=== PATIENT | female | born 1960 | race Hispanic/Latino ===

== ENCOUNTER → 2017-09-26 | Outpatient (CLI) | payer OTHER | END | disposition home or self-care (01) | LOC: RAH 10:05 | PROVIDERS: ATTEND Internal Medicine | DX: D86.0 Sarcoidosis of lung (principal) | CPT/HCPCS: 71046 ==

== ENCOUNTER → 2018-11-05 | Outpatient (CLI) | payer OTHER | END | disposition home or self-care (01) | LOC: RAH 10:47 | PROVIDERS: ATTEND Internal Medicine | DX: Z12.31 Encounter for screening mammogram for malignant neoplasm of breast (principal) | CPT/HCPCS: 77067 ==

== ENCOUNTER → 2018-11-25 | Outpatient (CLI) | payer OTHER | END | disposition home or self-care (01) | LOC: RAH 08:57 | PROVIDERS: ATTEND Internal Medicine | DX: N60.01 Solitary cyst of right breast (principal); R59.0 Localized enlarged lymph nodes | CPT/HCPCS: 76641; 77065 ==

== ENCOUNTER → 2019-11-09 | Outpatient (CLI) | payer OTHER | END | disposition home or self-care (01) | LOC: RAH 09:40 | PROVIDERS: ATTEND Internal Medicine | DX: Z12.31 Encounter for screening mammogram for malignant neoplasm of breast (principal); N64.89 Other specified disorders of breast | CPT/HCPCS: 77067 ==

== ENCOUNTER → 2019-12-04 | Outpatient (CLI) | payer OTHER | END | disposition home or self-care (01) | LOC: RAH 13:45 | PROVIDERS: ATTEND Internal Medicine | DX: R92.2 Inconclusive mammogram (principal) | CPT/HCPCS: 76641; 77065 ==

== ENCOUNTER → 2019-12-10 | Outpatient (CLI) | payer OTHER ==
--- NOTE | 2019-12-10 09:30 | NUR ---
BIOPSY RIGHT AXILLA LYMPH NODE BIOPSY DONE BY DR. FLORES. PT TOLERATED WELL. SPECIMEN SEND TO LAB . SMALL DRESSING APPLIED TO AREA POST PROCEDURE. DC INTRUCTONS GIVEN TO PT . SHE VERBALIZED UNDERSTANDING.
[2019-12-10 09:37] LABS: INR 0.9 (0.85-1.15); PARTIAL THROMBOPLASTIN TIME 34.1 SEC (26.3-35.5); PROTHROMBIN TIME 9.8 SEC (9.6-11.6)
== END | disposition home or self-care (01) ==
LOC: RAH 08:01
PROVIDERS: ATTEND Internal Medicine
DX: R59.9 Enlarged lymph nodes, unspecified (principal)
CPT/HCPCS: 36415; 38505; 76942; 85610; 85730

== ENCOUNTER → 2020-11-09 | Outpatient (CLI) | payer BC | END | disposition home or self-care (01) | LOC: RAH 08:09 | PROVIDERS: ATTEND Internal Medicine | DX: Z12.31 Encounter for screening mammogram for malignant neoplasm of breast (principal) | CPT/HCPCS: 77067 ==

== ENCOUNTER 2020-12-15 11:49 | Inpatient (IN) | payer BC ==
[~2020-12-15] VITALS: Ht 162.6 cm; Wt 69.4 kg
[2020-12-15] MEDS ORDERED: ONDANSETRON 4MG INJ IVP PRN (12:30)
[2020-12-15] MEDS ORDERED: MORPHINE 2 MG SYG IVP PRN (12:30)
[2020-12-15 12:33] LABS: BASOPHILS % (AUTO) 0.3 % (0.0-5.0); EOSINOPHILS % (AUTO) 0.2 % (0.0-8.0); HEMATOCRIT 38.5 % (36-48); LYMPHOCYTES % (AUTO) 7.1 % (21.0-51.0); MEAN CORPUSCULAR HEMOGLOBIN 29.3 pg (27.0-33.0); MEAN CORPUSCULAR HGB CONC 33.5 g/dL (32.0-36.0); MEAN CORPUSCULAR VOLUME 87.5 fL (79-99); MONOCYTES % (AUTO) 6.5 % (3.0-13.0); NEUTROPHILS % (AUTO) 85.4 % (40.0-77.0); PLATELET COUNT (AUTO) 307 K/uL (130-400); RED CELL DISTRIBUTION WIDTH 13.9 % (11.0-15.5); WHITE BLOOD COUNT (AUTO) 10.2 K/uL (4.8-10.8)
[2020-12-15 12:48] LABS: ALBUMIN 3.8 g/dL (3.5-5.0); BILIRUBIN,TOTAL 0.5 mg/dL (0.2-1.0); CREATININE 0.7 mg/dL (0.5-1.5); TOTAL PROTEIN, SERUM 8.6 g/dL (6.0-8.3)
[2020-12-15 12:54] LABS: POTASSIUM 2.7 mmol/L (3.5-5.1)
[2020-12-15] MEDS ORDERED: MAG/ALUM/SIMETH 30 ML UDCUP PO ONE (13:00)
[2020-12-15] MEDS ORDERED: DIATR MEGLU/DIATRIZOATE SODIUM 30 ML BOTTLE ONE (13:03)
[2020-12-15] MEDS: 0.9%NACL 1000ML 1,000 ML IV SCH (13:19)
[2020-12-15] MEDS ORDERED: OMEP40CA21 PO (13:23)
[2020-12-15] MEDS ORDERED: FLUT16H NASAL (13:23)
[2020-12-15] MEDS ORDERED: CETI-89 PO (13:23)
[2020-12-15] MEDS ORDERED: ROSU5TAB12 PO (13:23)
[2020-12-15 14:25] VITALS: BP 132/64
[2020-12-15] MEDS ORDERED: IOHEXOL 350 MG/ML 100ML INFUS..BTL IV ONE (16:07)
[2020-12-15] MEDS ORDERED: LACTULOSE 20 GM/30 ML UDCUP PO PRN (17:30)
[2020-12-15] MEDS ORDERED: POTASSIUM CHLORIDE 20MEQ/100ML 100 ML IV PRN (17:30)
[2020-12-15] MEDS ORDERED: DiphenhydrAMINE HCL 50 MG/ML VIAL IV PRN (17:30)
[2020-12-15] MEDS ORDERED: LIDOCAINE HCL-MPF 1% 2ML VIAL IV PRN (17:30)
[2020-12-15] MEDS ORDERED: MAG/ALUM/SIMETH 30 ML UDCUP PO PRN (17:30)
[2020-12-15] MEDS ORDERED: ACETAMINOPHEN 325 MG TAB PO PRN ×2 (17:30)
[2020-12-15] MEDS: LIDOCAINE HCL-MPF 1% 2ML VIAL IV PRN ×3 (18:30→23:59)
[2020-12-15] MEDS: POTASSIUM CHLORIDE 20MEQ/100ML 100 ML IV PRN ×3 (18:30→23:59)
[2020-12-15] MEDS: METRONIDAZOLE 500MG/100ML BAG 100 ML IV SCH (18:30)
[2020-12-15 19:36] VITALS: BP 95/62
[2020-12-15] MEDS: PHARMACY COMMUNICATION MISC SCH ×4 (20:00→22:26)
[2020-12-15] MEDS: FAMOTIDINE 20MG VIAL IV SCH (20:28)
[2020-12-15 21:39] VITALS: BP 98/52
[2020-12-15 23:39] VITALS: BP 102/61
[2020-12-16] VITALS (10 sets, daily range): BP systolic 95–114; BP diastolic 53–82
[2020-12-16] MEDS: 0.9%NACL 1000ML 1,000 ML IV SCH ×2 (00:14→02:08)
[2020-12-16] MEDS: PHARMACY COMMUNICATION MISC SCH (00:31)
[2020-12-16] MEDS ORDERED: CEFTRIAXONE 1G VIAL ONE (01:26)
[2020-12-16] MEDS: METRONIDAZOLE 500MG/100ML BAG 100 ML IV SCH ×3 (02:35→18:07)
[2020-12-16] MEDS: LIDOCAINE HCL-MPF 1% 2ML VIAL IV PRN (05:08)
[2020-12-16] MEDS: POTASSIUM CHLORIDE 20MEQ/100ML 100 ML IV PRN (05:08)
[2020-12-16 06:56] LABS: MEAN CORPUSCULAR HEMOGLOBIN 29.5 pg (27.0-33.0); MEAN CORPUSCULAR VOLUME 86.6 fL (79-99); RED BLOOD CELL COUNT(AUTO) 4.04 MIL/uL (4.00-5.50); WHITE BLOOD COUNT (AUTO) 8.4 K/uL (4.8-10.8)
[2020-12-16 07:05] LABS: CREATININE 0.6 mg/dL (0.5-1.5); POTASSIUM 3.6 mmol/L (3.5-5.1)
[2020-12-16] MEDS: ENOXAPARIN SODIUM 40 MG/0.4 ML SYRINGE SQ SCH (09:06)
[2020-12-16] MEDS: FAMOTIDINE 20MG VIAL IV SCH ×2 (09:06→20:21)
[2020-12-16] MEDS: CEFTRIAXONE 1G VIAL IV SCH (20:21)
[2020-12-17] MEDS: METRONIDAZOLE 500MG/100ML BAG 100 ML IV SCH ×3 (00:44→19:17)
[2020-12-17] MEDS: 0.9%NACL 1000ML 1,000 ML IV SCH ×4 (00:44→22:52)
[2020-12-17 04:13] VITALS: BP 117/62
[2020-12-17 05:54] LABS: HEMATOCRIT 33.9 % (36-48); MEAN CORPUSCULAR HEMOGLOBIN 29.3 pg (27.0-33.0); MEAN CORPUSCULAR HGB CONC 33.6 g/dL (32.0-36.0); MEAN CORPUSCULAR VOLUME 87.1 fL (79-99); RED BLOOD CELL COUNT(AUTO) 3.89 MIL/uL (4.00-5.50); RED CELL DISTRIBUTION WIDTH 14.6 % (11.0-15.5); WHITE BLOOD COUNT (AUTO) 5.8 K/uL (4.8-10.8)
[2020-12-17 06:25] LABS: CREATININE 0.4 mg/dL (0.5-1.5); POTASSIUM 3.4 mmol/L (3.5-5.1)
[2020-12-17 08:00] VITALS: BP 107/68
[2020-12-17] MEDS: ENOXAPARIN SODIUM 40 MG/0.4 ML SYRINGE SQ SCH (09:38)
[2020-12-17] MEDS: FAMOTIDINE 20MG VIAL IV SCH ×2 (09:38→22:23)
[2020-12-17 11:48] VITALS: BP 107/64
[2020-12-17] MEDS ORDERED: GLYCERIN ADULT SUPP.RECT RC ONE (14:40)
[2020-12-17] MEDS ORDERED: BISACODYL 10 MG SUPP.RECT RC ONE (15:49)
[2020-12-17 16:00] VITALS: BP 95/66
[2020-12-17] MEDS ORDERED: POTASSIUM CHLORIDE 20 MEQ/100 ML BAG IV SCH (19:30)
[2020-12-17] MEDS: LIDOCAINE HCL-MPF 1% 2ML VIAL IV PRN (19:34)
[2020-12-17 19:35] VITALS: BP 100/62
[2020-12-17] MEDS: POTASSIUM CHLORIDE 20MEQ/100ML 100 ML IV PRN (19:35)
[2020-12-17] MEDS: CEFTRIAXONE 1G VIAL IV SCH (22:23)
[2020-12-18] VITALS (21 sets, daily range): BP systolic 94–133; BP diastolic 36–92
[2020-12-18] MEDS: METRONIDAZOLE 500MG/100ML BAG 100 ML IV SCH ×3 (01:34→16:23)
[2020-12-18 05:48] LABS: HEMATOCRIT 33.4 % (36-48); MEAN CORPUSCULAR HEMOGLOBIN 29.1 pg (27.0-33.0); MEAN CORPUSCULAR HGB CONC 32.9 g/dL (32.0-36.0); MEAN CORPUSCULAR VOLUME 88.4 fL (79-99); RED BLOOD CELL COUNT(AUTO) 3.78 MIL/uL (4.00-5.50); RED CELL DISTRIBUTION WIDTH 14.9 % (11.0-15.5); WHITE BLOOD COUNT (AUTO) 5.4 K/uL (4.8-10.8)
[2020-12-18 05:58] LABS: CREATININE 0.4 mg/dL (0.5-1.5)
[2020-12-18] MEDS: LIDOCAINE HCL-MPF 1% 2ML VIAL IV PRN ×2 (06:19→08:37)
[2020-12-18] MEDS: POTASSIUM CHLORIDE 20MEQ/100ML 100 ML IV PRN ×3 (06:19→19:55)
[2020-12-18] MEDS: ENOXAPARIN SODIUM 40 MG/0.4 ML SYRINGE SQ SCH (08:33)
[2020-12-18] MEDS: 0.9%NACL 1000ML 1,000 ML IV SCH (08:37)
[2020-12-18] MEDS: FAMOTIDINE 20MG VIAL IV SCH ×2 (08:37→19:52)
[2020-12-18] MEDS ORDERED: SIMETHICONE 40 MG/0.6 ML ML ONE (10:24)
[2020-12-18] MEDS ORDERED: PROPOFOL 10 MG/ML 20ML VIAL IV ONE (10:27)
[2020-12-18] MEDS ORDERED: MIDAZOLAM HCL 1 MG/ML 2ML VIAL ONE (10:27)
[2020-12-18] MEDS ORDERED: LIDOCAINE PF 100MG/5ML (2%) SYRINGE 5ML ONE (10:29)
[2020-12-18] MEDS ORDERED: PHARMACY COMMUNICATION MISC SCH (11:30)
[2020-12-18] MEDS: D5W-1/2 NS/20MEQ KCL 1,000 ML IV SCH ×2 (14:16→19:30)
[2020-12-18] MEDS: CEFTRIAXONE 1G VIAL IV SCH (19:52)
[2020-12-19] MEDS: METRONIDAZOLE 500MG/100ML BAG 100 ML IV SCH ×3 (00:58→18:01)
[2020-12-19] MEDS: D5W-1/2 NS/20MEQ KCL 1,000 ML IV SCH (01:00)
[2020-12-19] MEDS: LIDOCAINE HCL-MPF 1% 2ML VIAL IV PRN ×2 (01:08→06:00)
[2020-12-19 04:14] VITALS: BP 111/63
[2020-12-19 05:40] LABS: CREATININE 0.5 mg/dL (0.5-1.5); POTASSIUM 3.1 mmol/L (3.5-5.1)
[2020-12-19 07:30] VITALS: BP 117/66
[2020-12-19] MEDS: FAMOTIDINE 20MG VIAL IV SCH ×2 (09:48→21:47)
[2020-12-19] MEDS: ENOXAPARIN SODIUM 40 MG/0.4 ML SYRINGE SQ SCH (09:49)
[2020-12-19 11:00] VITALS: BP 117/67
[2020-12-19] MEDS ORDERED: GLYCERIN ADULT SUPP.RECT RC SCH (11:00)
[2020-12-19] MEDS ORDERED: BISACODYL 10 MG SUPP.RECT RC PRN (11:00)
[2020-12-19 11:50] LABS: POTASSIUM 3.2 mmol/L (3.5-5.1)
[2020-12-19 16:00] VITALS: BP 122/60
[2020-12-19] MEDS: DEXTROSE 5%-WATER 1,000 ML IV SCH (18:01)
[2020-12-19 20:10] VITALS: BP 116/60
[2020-12-19] MEDS: CEFTRIAXONE 1G VIAL IV SCH (21:47)
[2020-12-19 23:45] VITALS: BP 119/74
[2020-12-20] MEDS: DEXTROSE 5%-WATER 1,000 ML IV SCH ×3 (02:02→18:08)
[2020-12-20] MEDS: METRONIDAZOLE 500MG/100ML BAG 100 ML IV SCH ×3 (02:02→18:08)
[2020-12-20 04:04] VITALS: BP 115/68
[2020-12-20 05:35] LABS: CREATININE 0.5 mg/dL (0.5-1.5); POTASSIUM 3.7 mmol/L (3.5-5.1)
[2020-12-20 07:30] VITALS: BP 109/68
[2020-12-20] MEDS ORDERED: DEXMEDETOMIDINE HCL 400 MCG in 0.9%NACL 100ML 100 ML IV SCH (08:00)
[2020-12-20] MEDS ORDERED: M.V.I. IV [ADULT] 10 ML, MULTITRACE-4 ADULT 10ML VIAL 3 ML in CLINIMIX-E4.25%AA/D5+LYT2... IV NR (09:00)
[2020-12-20 11:00] VITALS: BP 96/62
[2020-12-20] MEDS: ENOXAPARIN SODIUM 40 MG/0.4 ML SYRINGE SQ SCH (11:09)
[2020-12-20] MEDS: FAMOTIDINE 20MG VIAL IV SCH ×2 (11:09→20:42)
[2020-12-20 16:00] VITALS: BP 103/59
[2020-12-20 20:09] VITALS: BP 96/59
[2020-12-20] MEDS: CEFTRIAXONE 1G VIAL IV SCH (20:42)
[2020-12-20] MEDS: M.V.I. IV [ADULT] 10 ML in CLINIMIX-E4.25%AA/D5+LYT2000ML 2,000 ML IV NR (20:50)
[2020-12-20] MEDS: ONDANSETRON 4MG INJ IV PRN (23:09)
[2020-12-20 23:45] VITALS: BP 100/56
[2020-12-21] MEDS: DEXTROSE 5%-WATER 1,000 ML IV SCH ×3 (00:29→17:00)
[2020-12-21] MEDS: METRONIDAZOLE 500MG/100ML BAG 100 ML IV SCH ×2 (01:08→22:47)
[2020-12-21 04:07] VITALS: BP 109/66
[2020-12-21 04:56] LABS: HEMATOCRIT 36.2 % (36-48); MEAN CORPUSCULAR HEMOGLOBIN 29.4 pg (27.0-33.0); MEAN CORPUSCULAR VOLUME 91.6 fL (79-99); RED BLOOD CELL COUNT(AUTO) 3.95 MIL/uL (4.00-5.50); RED CELL DISTRIBUTION WIDTH 15.8 % (11.0-15.5); WHITE BLOOD COUNT (AUTO) 6.7 K/uL (4.8-10.8)
[2020-12-21 05:11] LABS: CREATININE 0.6 mg/dL (0.5-1.5); POTASSIUM 4.6 mmol/L (3.5-5.1)
[2020-12-21 07:30] VITALS: BP 107/64
[2020-12-21] MEDS: FAT EMULSIONS 20% 250ML 250 ML IV SCH ×2 (09:42→10:00)
[2020-12-21] MEDS: PANTOPRAZOLE 40 MG/VIAL IVP SCH (09:50)
[2020-12-21 11:00] VITALS: BP 111/72
[2020-12-21] MEDS: M.V.I. IV [ADULT] 10 ML in CLINIMIX-E4.25%AA/D5+LYT2000ML 2,000 ML IV NR ×2 (13:50→22:48)
[2020-12-21 16:00] VITALS: BP 103/67
[2020-12-21 20:24] VITALS: BP_SYST 139; BP_SYST 99; BP_DIAS 50; BP_DIAS 61
[2020-12-21] MEDS: CEFTRIAXONE 1G VIAL IV SCH (22:33)
[2020-12-21 23:57] VITALS: BP 105/59
[2020-12-22] VITALS (18 sets, daily range): BP systolic 86–162; BP diastolic 53–93
[2020-12-22] MEDS: DEXTROSE 5%-WATER 1,000 ML IV SCH ×2 (01:00→08:20)
[2020-12-22 05:36] LABS: BASOPHILS % (AUTO) 0.5 % (0.0-5.0); EOSINOPHILS % (AUTO) 2.8 % (0.0-8.0); HEMATOCRIT 35.2 % (36-48); LYMPHOCYTES % (AUTO) 13.4 % (21.0-51.0); MEAN CORPUSCULAR HEMOGLOBIN 29.3 pg (27.0-33.0); MEAN CORPUSCULAR HGB CONC 32.7 g/dL (32.0-36.0); MEAN CORPUSCULAR VOLUME 89.8 fL (79-99); MONOCYTES % (AUTO) 9.8 % (3.0-13.0); NEUTROPHILS % (AUTO) 72.7 % (40.0-77.0); PLATELET COUNT (AUTO) 329 K/uL (130-400); RED BLOOD CELL COUNT(AUTO) 3.92 MIL/uL (4.00-5.50); RED CELL DISTRIBUTION WIDTH 15.6 % (11.0-15.5); WHITE BLOOD COUNT (AUTO) 6.1 K/uL (4.8-10.8)
[2020-12-22 05:44] LABS: INR 1.05 (0.85-1.15); PROTHROMBIN TIME 11.4 SEC (9.6-11.6)
[2020-12-22 05:45] LABS: PARTIAL THROMBOPLASTIN TIME 29.8 SEC (26.3-35.5)
[2020-12-22 05:52] LABS: ALBUMIN 2.7 g/dL (3.5-5.0); BILIRUBIN,TOTAL 0.3 mg/dL (0.2-1.0); CREATININE 0.5 mg/dL (0.5-1.5); POTASSIUM 4.6 mmol/L (3.5-5.1)
[2020-12-22] MEDS: PANTOPRAZOLE 40 MG/VIAL IVP SCH (08:01)
[2020-12-22] MEDS: ENOXAPARIN SODIUM 30 MG/0.3 ML SQ SCH (08:01)
[2020-12-22] MEDS: METRONIDAZOLE 500MG/100ML BAG 100 ML IV SCH ×4 (08:01→20:48)
[2020-12-22] MEDS ORDERED: LACTATED RINGERS 1000ML 1,000 ML IV ONE (08:22)
[2020-12-22] MEDS ORDERED: FENTANYL CITRATE PF 50 MCG/1 ML 2ML VIAL ONE (08:47)
[2020-12-22] MEDS ORDERED: SUCCINYLCHOLINE CHLORIDE 20 MG/ML 10 ML VIAL ONE (08:47)
[2020-12-22] MEDS ORDERED: ROCURONIUM 10MG/1ML SYR 10 MG/ML ML ONE ×4 (08:47→12:50)
[2020-12-22] MEDS ORDERED: LIDOCAINE PF 100MG/5ML (2%) SYRINGE 5ML ONE (08:47)
[2020-12-22] MEDS ORDERED: MIDAZOLAM HCL 1 MG/ML 2ML VIAL ONE ×2 (08:47→13:01)
[2020-12-22] MEDS ORDERED: PROPOFOL 10 MG/ML 20ML VIAL IV ONE (08:48)
[2020-12-22] MEDS ORDERED: ROPIVACAINE 0.5% 5MG/ML 30ML IJ ONE (08:52)
[2020-12-22] MEDS ORDERED: PHENYLEPHRINE HCL 10 MG/ML 1ML VIAL IV ONE (09:58)
[2020-12-22] MEDS ORDERED: CLINDAMYCIN 900MG/6ML INJ ONE ×2 (10:00→11:19)
[2020-12-22] MEDS ORDERED: ALBUMIN (HUMAN) 5% 250 ML IV ONE ×4 (11:27→14:50)
[2020-12-22] MEDS ORDERED: VASOPRESSIN 20 UNITS/ML 1ML VIAL ONE (11:38)
[2020-12-22 11:39] LABS: ABG BASE EXCESS -1.3 mmol/L (-2.0-3.0); ABG HCO3 22.3 mmol/L (21.0-28.0); ABG OXYGEN SATURATION 98.1 % (95.0-99.0); ABG PCO2 34 mmHg (32-45)
[2020-12-22] MEDS ORDERED: EPINEPHRINE 1 MG/ML 30ML VIAL IJ ONE (11:43)
[2020-12-22 11:44] LABS: ABG BASE EXCESS -2.6 mmol/L (-2.0-3.0); ABG HCO3 21.1 mmol/L (21.0-28.0); ABG OXYGEN SATURATION 98.9 % (95.0-99.0); ABG PCO2 33 mmHg (32-45)
[2020-12-22] MEDS ORDERED: NOREPINEPHRINE BITARTRATE 1 MG/1 ML ML IV ONE (11:53)
[2020-12-22] MEDS ORDERED: SODIUM BICARB 8.4% 50ML SYRINGE ONE (11:59)
[2020-12-22] MEDS ORDERED: ALBUMIN (HUMAN) 5% 500 ML IV ONE (12:12)
[2020-12-22] MEDS ORDERED: GENTAMICIN SULFATE 80 MG/2 ML VIAL ONE (12:20)
[2020-12-22] MEDS ORDERED: ALBUMIN (HUMAN) 25% 100 ML IV ONE (12:21)
[2020-12-22] MEDS ORDERED: SODIUM BICARB 50MEQ 50ML VIAL 250 ML ONE (12:26)
[2020-12-22 12:54] LABS: ABG BASE EXCESS 3.5 mmol/L (-2.0-3.0); ABG HCO3 28.2 mmol/L (21.0-28.0); ABG PCO2 43 mmHg (32-45)
[2020-12-22] MEDS: LACTATED RINGERS 1000ML 1,000 ML IV SCH ×2 (13:50→16:33)
[2020-12-22 15:19] LABS: HEMATOCRIT 37.7 % (36-48); MEAN CORPUSCULAR HEMOGLOBIN 28.8 pg (27.0-33.0); MEAN CORPUSCULAR HGB CONC 33.4 g/dL (32.0-36.0); MEAN CORPUSCULAR VOLUME 86.1 fL (79-99); PLATELET COUNT (AUTO) 244 K/uL (130-400); RED BLOOD CELL COUNT(AUTO) 4.38 MIL/uL (4.00-5.50); RED CELL DISTRIBUTION WIDTH 15.3 % (11.0-15.5); WHITE BLOOD COUNT (AUTO) 4.4 K/uL (4.8-10.8)
[2020-12-22 15:47] LABS: CREATININE 0.4 mg/dL (0.5-1.5); POTASSIUM 3.6 mmol/L (3.5-5.1)
[2020-12-22 15:55] LABS: BAND NEUTROPHILS % (MANUAL) 5 % (0-2); LYMPHOCYTES % (MANUAL) 16 % (22-44); MAN.DIFF COMMENT-IMPRESSION MANUAL DIFFERENTIAL; MONOCYTES % (MANUAL) 8 % (2-9); PLATELET MORPHOLOGY COMMENT ADEQUATE; REACTIVE LYMPHOCYTES 3 % (0-0); SEGMENTED NEUTROPHILS % 68 % (40-70)
[2020-12-22 15:59] LABS: ALBUMIN 3.8 g/dL (3.5-5.0); BILIRUBIN,TOTAL 2.1 mg/dL (0.2-1.0); TOTAL PROTEIN, SERUM 5.2 g/dL (6.0-8.3)
[2020-12-22] MEDS: FENTANYL 2500MCG+NS 250ML 250 ML IV SCH (16:00)
[2020-12-22] MEDS: CEFTRIAXONE 1G VIAL IV SCH (20:48)
[2020-12-22] MEDS ORDERED: NOREPINEPHRIN 8MG/250ML NS PMX 250 ML IV ONE (23:23)
[2020-12-23] VITALS (73 sets, daily range): BP systolic 69–144; BP diastolic 46–74
[2020-12-23] MEDS: PROPOFOL 1000 MG/100 ML IV PRN ×3 (01:17→09:00)
[2020-12-23 02:19] LABS: BASOPHILS % (AUTO) 0.6 % (0.0-5.0); EOSINOPHILS % (AUTO) 0.1 % (0.0-8.0); HEMATOCRIT 38.3 % (36-48); LYMPHOCYTES % (AUTO) 6.5 % (21.0-51.0); MEAN CORPUSCULAR HEMOGLOBIN 29.6 pg (27.0-33.0); MEAN CORPUSCULAR HGB CONC 34.7 g/dL (32.0-36.0); MEAN CORPUSCULAR VOLUME 85.3 fL (79-99); MONOCYTES % (AUTO) 4.6 % (3.0-13.0); NEUTROPHILS % (AUTO) 87.7 % (40.0-77.0); PLATELET COUNT (AUTO) 250 K/uL (130-400); RED BLOOD CELL COUNT(AUTO) 4.49 MIL/uL (4.00-5.50); RED CELL DISTRIBUTION WIDTH 15.7 % (11.0-15.5)
[2020-12-23 02:36] LABS: CREATININE 0.5 mg/dL (0.5-1.5); MAGNESIUM 1.4 mg/dL (1.80-2.40); PHOSPHORUS 4.8 mg/dL (2.5-4.9); POTASSIUM 3.7 mmol/L (3.5-5.1)
[2020-12-23] MEDS: LACTATED RINGERS 1000ML 1,000 ML IV SCH ×4 (03:00→22:28)
[2020-12-23] MEDS ORDERED: NOREPINEPHRIN 8MG/250ML NS PMX 250 ML IV ONE ×2 (04:42→17:21)
[2020-12-23] MEDS: MAGNESIUM 2GM PREMIX 50ML 50 ML IV PRN (07:13)
[2020-12-23] MEDS: POTASSIUM CHLORIDE 20MEQ/100ML 100 ML IV PRN ×2 (07:14→21:10)
[2020-12-23] MEDS: METRONIDAZOLE 500MG/100ML BAG 100 ML IV SCH ×2 (08:52→20:52)
[2020-12-23] MEDS: PANTOPRAZOLE 40 MG/VIAL IVP SCH (08:52)
[2020-12-23] MEDS: ENOXAPARIN SODIUM 30 MG/0.3 ML SQ SCH (08:52)
[2020-12-23] MEDS: FENTANYL 2500MCG+NS 250ML 250 ML IV SCH (09:01)
[2020-12-23] MEDS: FLUCONAZOLE 400 MG/NS 200 ML 200 ML IV SCH (10:57)
[2020-12-23] MEDS: LACTATED RINGERS 1000ML IV SCH ×2 (10:57→10:58)
[2020-12-23] MEDS ORDERED: PHARMACY COMMUNICATION MISC SCH (11:30)
[2020-12-23] MEDS: MIDAZOLAM 100MG-0.9% NS 100ML 100ML BAG IV SCH (17:38)
[2020-12-23 20:27] LABS: MAGNESIUM 2.2 mg/dL (1.80-2.40); POTASSIUM 3.6 mmol/L (3.5-5.1)
[2020-12-23] MEDS: CEFTRIAXONE 2GM VIAL IVP SCH (20:51)
[2020-12-24] VITALS (61 sets, daily range): BP systolic 75–125; BP diastolic 41–102
[2020-12-24] MEDS ORDERED: NOREPINEPHRIN 8MG/250ML NS PMX 250 ML IV ONE (00:57)
[2020-12-24] MEDS: FENTANYL 2500MCG+NS 250ML 250 ML IV SCH ×3 (01:50→19:41)
[2020-12-24] MEDS: NOREPINEPHRINE BITARTRATE 8 MG in DEXTROSE 5%-WATER 250 ML IV PRN (01:51)
[2020-12-24] MEDS: MIDAZOLAM 100MG-0.9% NS 100ML 100ML BAG IV SCH ×3 (03:48→19:39)
[2020-12-24 03:53] LABS: HEMATOCRIT 30.1 % (36-48); MEAN CORPUSCULAR HEMOGLOBIN 29.9 pg (27.0-33.0); MEAN CORPUSCULAR HGB CONC 33.6 g/dL (32.0-36.0); MEAN CORPUSCULAR VOLUME 89.1 fL (79-99); NUCLEATED RED BLOOD CELLS 0.1 % (0.0-0.19); RED BLOOD CELL COUNT(AUTO) 3.38 MIL/uL (4.00-5.50); RED CELL DISTRIBUTION WIDTH 16.6 % (11.0-15.5); WHITE BLOOD COUNT (AUTO) 17.2 K/uL (4.8-10.8)
[2020-12-24] MEDS: LACTATED RINGERS 1000ML 1,000 ML IV SCH (05:38)
[2020-12-24] MEDS ORDERED: DEXTROSE 50%-WATER 50 ML DISP.SYRIN IV ONE (05:45)
[2020-12-24] MEDS: DEXTROSE 50%-WATER 50 ML DISP.SYRIN IV SCH (05:48)
[2020-12-24 06:14] LABS: ALBUMIN 1.8 g/dL (3.5-5.0); BILIRUBIN,DIRECT 0.5 mg/dL (0.0-0.3); BILIRUBIN,TOTAL 0.7 mg/dL (0.2-1.0); CREATININE 0.8 mg/dL (0.5-1.5); PHOSPHORUS 2.2 mg/dL (2.5-4.9); POTASSIUM 3.5 mmol/L (3.5-5.1); TOTAL PROTEIN, SERUM 4.1 g/dL (6.0-8.3)
[2020-12-24] MEDS ORDERED: VANCOMYCIN PROTOCOL PER PHARMACY IV SCH (08:00)
[2020-12-24 08:14] LABS: CREATININE 0.7 mg/dL (0.5-1.5); POTASSIUM 3.1 mmol/L (3.5-5.1)
[2020-12-24] MEDS: DEXTROSE 5% IV SCH ×2 (09:00→21:41)
[2020-12-24] MEDS: PANTOPRAZOLE 40 MG/VIAL IVP SCH (09:00)
[2020-12-24] MEDS: WATER IV SCH ×2 (09:00→21:41)
[2020-12-24] MEDS ORDERED: VANCOMYCIN 1G/250ML KIT 250 ML IV SCH (09:00)
[2020-12-24] MEDS: FLUCONAZOLE 400 MG/NS 200 ML 200 ML IV SCH (09:00)
[2020-12-24] MEDS: ENOXAPARIN SODIUM 30 MG/0.3 ML SQ SCH (09:00)
[2020-12-24] MEDS: METRONIDAZOLE 500MG/100ML BAG 100 ML IV SCH ×2 (09:00→21:40)
[2020-12-24] MEDS: VANCOMYCIN IV SCH ×2 (09:00→21:41)
[2020-12-24] MEDS ORDERED: PHARMACY COMMUNICATION MISC SCH (09:00)
[2020-12-24] MEDS ORDERED: DEXTROSE 5%-WATER 1,000 ML IV ONE ×2 (09:28→13:02)
[2020-12-24 11:40] LABS: CREATININE 0.6 mg/dL (0.5-1.5)
[2020-12-24 11:45] LABS: POTASSIUM 2.9 mmol/L (3.5-5.1)
[2020-12-24] MEDS ORDERED: ROCURONIUM 10MG/1ML SYR 10 MG/ML ML ONE (12:51)
[2020-12-24] MEDS ORDERED: EPHEDRINE SULFATE 50 MG/ML AMPULE ONE (12:51)
[2020-12-24] MEDS ORDERED: CLINDAMYCIN 900MG/6ML INJ ONE (13:03)
[2020-12-24] MEDS ORDERED: VASOPRESSIN 20 UNITS/ML 1ML VIAL ONE (13:04)
[2020-12-24] MEDS ORDERED: FENTANYL CITRATE PF 50 MCG/1 ML 2ML VIAL ONE (13:20)
[2020-12-24 13:24] LABS: ABG BASE EXCESS 1.1 mmol/L (-2.0-3.0); ABG HCO3 25.5 mmol/L (21.0-28.0); ABG OXYGEN SATURATION 98.6 % (95.0-99.0); ABG PCO2 40 mmHg (32-45)
[2020-12-24 15:14] LABS: HEMATOCRIT 31.1 % (36-48); MEAN CORPUSCULAR HEMOGLOBIN 29.8 pg (27.0-33.0); MEAN CORPUSCULAR HGB CONC 31.5 g/dL (32.0-36.0); MEAN CORPUSCULAR VOLUME 94.5 fL (79-99); NUCLEATED RED BLOOD CELLS 0.2 % (0.0-0.19); PLATELET COUNT (AUTO) 217 K/uL (130-400); RED BLOOD CELL COUNT(AUTO) 3.29 MIL/uL (4.00-5.50); RED CELL DISTRIBUTION WIDTH 17.2 % (11.0-15.5); WHITE BLOOD COUNT (AUTO) 16.8 K/uL (4.8-10.8)
[2020-12-24 15:22] LABS: CREATININE 0.7 mg/dL (0.5-1.5); POTASSIUM 3.2 mmol/L (3.5-5.1)
[2020-12-24 16:16] LABS: BAND NEUTROPHILS % (MANUAL) 3 % (0-2); LYMPHOCYTES % (MANUAL) 7 % (22-44); MAN.DIFF COMMENT-IMPRESSION MANUAL DIFFERENTIAL; MONOCYTES % (MANUAL) 3 % (2-9); SEGMENTED NEUTROPHILS % 87 % (40-70)
[2020-12-24 16:17] LABS: PLATELET MORPHOLOGY COMMENT ADEQUATE
[2020-12-24 17:48] LABS: APPEARANCE,URINE Clear (CLEAR); BILIRUBIN,URINE Negative (NEGATIVE); COLOR,URINE Yellow (YELLOW); GLUCOSE, URINE (UA) Negative (NEGATIVE); KETONES,URINE Negative (NEGATIVE); LEUKOCYTE ESTERASE ,URINE Trace (NEGATIVE); NITRATE,URINE Negative (NEGATIVE); OCCULT BLOOD,URINE Trace (NEGATIVE); PROTEIN,URINE Negative (NEGATIVE); UROBILINOGEN,URINE 0.2 mg/dL (0.2-1.0)
[2020-12-24 18:10] LABS: BACTERIA,URINE Rare /HPF (None Seen); MUCUS,URINE Rare LPF (None Seen); SQUAMOUS EPITHELIAL CELL,UR 0-2 /HPF (0-2)
[2020-12-24 19:22] LABS: CREATININE 0.7 mg/dL (0.5-1.5); POTASSIUM 3.5 mmol/L (3.5-5.1)
[2020-12-24 19:25] LABS: CHLORIDE,URINE RANDOM 54 mmol/L (110-250); CREATININE,URINE RANDOM 2 mg/dL (30-135); POTASSIUM,URINE RANDOM 12 mmol/L (25-125); SODIUM,URINE RANDOM 48 mmol/l (40-220)
[2020-12-24] MEDS ORDERED: DEXTROSE 5 % AND 0.9 % NACL 1,000 ML IV ONE (20:54)
[2020-12-24] MEDS ORDERED: VANCOMYCIN 1G/250ML KIT 250 ML IV ONE (21:36)
[2020-12-24] MEDS: CEFTRIAXONE 2GM VIAL IVP SCH (21:41)
[2020-12-24 23:47] LABS: CREATININE 0.7 mg/dL (0.5-1.5); POTASSIUM 3.1 mmol/L (3.5-5.1)
[2020-12-25] VITALS (51 sets, daily range): BP systolic 78–133; BP diastolic 38–78
[2020-12-25] MEDS ORDERED: DEXTROSE 5 % AND 0.9 % NACL 1,000 ML IV ONE (02:40)
[2020-12-25] MEDS ORDERED: NOREPINEPHRIN 8MG/250ML NS PMX 250 ML IV ONE (03:03)
[2020-12-25 03:52] LABS: HEMATOCRIT 36.1 % (36-48); MEAN CORPUSCULAR HEMOGLOBIN 29.4 pg (27.0-33.0); MEAN CORPUSCULAR HGB CONC 29.9 g/dL (32.0-36.0); MEAN CORPUSCULAR VOLUME 98.4 fL (79-99); NUCLEATED RED BLOOD CELLS 0.4 % (0.0-0.19); RED BLOOD CELL COUNT(AUTO) 3.67 MIL/uL (4.00-5.50); RED CELL DISTRIBUTION WIDTH 17.7 % (11.0-15.5)
[2020-12-25 04:10] LABS: CREATININE 0.7 mg/dL (0.5-1.5); MAGNESIUM 1.9 mg/dL (1.80-2.40); PHOSPHORUS 1.5 mg/dL (2.5-4.9)
[2020-12-25 04:33] LABS: POTASSIUM 2.8 mmol/L (3.5-5.1)
[2020-12-25] MEDS: DEXTROSE 50%-WATER 50 ML DISP.SYRIN IV SCH ×2 (05:09→21:24)
[2020-12-25] MEDS: POTASSIUM CHLORIDE 20MEQ/100ML 100 ML IV PRN ×4 (05:14→22:36)
[2020-12-25] MEDS: MAGNESIUM 2GM PREMIX 50ML 50 ML IV PRN (05:14)
[2020-12-25 08:17] LABS: CREATININE 0.8 mg/dL (0.5-1.5); POTASSIUM 3.4 mmol/L (3.5-5.1)
[2020-12-25] MEDS: PANTOPRAZOLE 40 MG/VIAL IVP SCH (09:18)
[2020-12-25] MEDS: METRONIDAZOLE 500MG/100ML BAG 100 ML IV SCH ×2 (09:18→21:11)
[2020-12-25] MEDS: FLUCONAZOLE 400 MG/NS 200 ML 200 ML IV SCH (09:18)
[2020-12-25] MEDS: DEXTROSE 5%-WATER 1,000 ML IV SCH ×4 (09:19→21:25)
[2020-12-25] MEDS: ENOXAPARIN SODIUM 30 MG/0.3 ML SQ SCH (09:19)
[2020-12-25] MEDS: DEXTROSE 5% IV SCH ×2 (09:24→21:07)
[2020-12-25] MEDS: WATER IV SCH ×2 (09:24→21:07)
[2020-12-25] MEDS: VANCOMYCIN IV SCH ×2 (09:24→21:07)
[2020-12-25] MEDS: FENTANYL 2500MCG+NS 250ML 250 ML IV SCH ×2 (10:21→19:44)
[2020-12-25] MEDS: MIDAZOLAM 100MG-0.9% NS 100ML 100ML BAG IV SCH ×2 (10:22→21:49)
[2020-12-25] MEDS ORDERED: PHARMACY COMMUNICATION MISC SCH (11:00)
[2020-12-25 11:20] LABS: CREATININE 0.8 mg/dL (0.5-1.5); POTASSIUM 3.2 mmol/L (3.5-5.1)
[2020-12-25 17:04] LABS: CREATININE 0.8 mg/dL (0.5-1.5); POTASSIUM 3.2 mmol/L (3.5-5.1)
[2020-12-25] MEDS: NOREPINEPHRINE BITARTRATE 8 MG in DEXTROSE 5%-WATER 250 ML IV PRN (19:46)
[2020-12-25 19:53] LABS: CREATININE 0.8 mg/dL (0.5-1.5); POTASSIUM 3.2 mmol/L (3.5-5.1)
[2020-12-25] MEDS ORDERED: VANCOMYCIN 1G/250ML KIT 250 ML IV ONE (20:50)
[2020-12-25] MEDS: CEFTRIAXONE 2GM VIAL IVP SCH (21:16)
[2020-12-25 23:53] LABS: CREATININE 0.8 mg/dL (0.5-1.5)
[2020-12-26] VITALS (56 sets, daily range): BP systolic 74–179; BP diastolic 39–108
[2020-12-26 00:08] LABS: POTASSIUM 3.7 mmol/L (3.5-5.1)
[2020-12-26] MEDS: DEXTROSE 5%-WATER 1,000 ML IV SCH ×4 (00:35→14:28)
[2020-12-26 02:37] LABS: HEMATOCRIT 33.2 % (36-48); MEAN CORPUSCULAR HEMOGLOBIN 29.3 pg (27.0-33.0); MEAN CORPUSCULAR HGB CONC 30.7 g/dL (32.0-36.0); MEAN CORPUSCULAR VOLUME 95.4 fL (79-99); NUCLEATED RED BLOOD CELLS 0.5 % (0.0-0.19); RED BLOOD CELL COUNT(AUTO) 3.48 MIL/uL (4.00-5.50)
[2020-12-26 02:49] LABS: CREATININE 0.8 mg/dL (0.5-1.5); MAGNESIUM 2.3 mg/dL (1.80-2.40); PHOSPHORUS 1.6 mg/dL (2.5-4.9); POTASSIUM 3.6 mmol/L (3.5-5.1)
[2020-12-26] MEDS: NOREPINEPHRINE BITARTRATE 16 MG in DEXTROSE 5%-WATER 250 ML IV PRN ×3 (04:41→19:07)
[2020-12-26 06:36] LABS: CREATININE 0.8 mg/dL (0.5-1.5)
[2020-12-26 06:47] LABS: POTASSIUM 3.2 mmol/L (3.5-5.1)
[2020-12-26] MEDS: POTASSIUM CHLORIDE 20MEQ/100ML 100 ML IV PRN ×3 (08:15→18:27)
[2020-12-26] MEDS: ENOXAPARIN SODIUM 30 MG/0.3 ML SQ SCH (09:00)
[2020-12-26] MEDS: PANTOPRAZOLE 40 MG/VIAL IVP SCH (09:01)
[2020-12-26] MEDS: FLUCONAZOLE 400 MG/NS 200 ML 200 ML IV SCH (09:02)
[2020-12-26] MEDS: METRONIDAZOLE 500MG/100ML BAG 100 ML IV SCH ×2 (09:02→21:42)
[2020-12-26 10:49] LABS: CREATININE 0.7 mg/dL (0.5-1.5)
[2020-12-26 10:53] LABS: INR 1.36 (0.85-1.15); PROTHROMBIN TIME 14.4 SEC (9.6-11.6)
[2020-12-26 10:55] LABS: PARTIAL THROMBOPLASTIN TIME 39.7 SEC (26.3-35.5)
[2020-12-26] MEDS: DEXTROSE 5% IV SCH ×2 (11:08→21:43)
[2020-12-26] MEDS: WATER IV SCH ×2 (11:08→21:43)
[2020-12-26] MEDS: VANCOMYCIN IV SCH ×2 (11:08→21:43)
[2020-12-26] MEDS ORDERED: CLINDAMYCIN 900MG/6ML INJ ONE ×2 (12:03→12:30)
[2020-12-26] MEDS ORDERED: ROCURONIUM 10MG/1ML SYR 10 MG/ML ML ONE (12:16)
[2020-12-26] MEDS ORDERED: NOREPINEPHRINE BITARTRATE 1 MG/1 ML ML IV ONE (13:08)
[2020-12-26 13:17] LABS: ABG BASE EXCESS -5.9 mmol/L (-2.0-3.0); ABG HCO3 21.9 mmol/L (21.0-28.0); ABG OXYGEN SATURATION 98.1 % (95.0-99.0); ABG PCO2 53 mmHg (32-45)
[2020-12-26] MEDS ORDERED: SODIUM BICARB 8.4% 50ML SYRINGE ONE (13:23)
[2020-12-26 14:41] LABS: CREATININE 0.8 mg/dL (0.5-1.5); POTASSIUM 3.2 mmol/L (3.5-5.1)
[2020-12-26] MEDS: MIDAZOLAM 100MG-0.9% NS 100ML 100ML BAG IV SCH (14:44)
[2020-12-26 15:18] LABS: ABG BASE EXCESS -1.6 mmol/L (-2.0-3.0); ABG HCO3 23.1 mmol/L (21.0-28.0); ABG OXYGEN SATURATION 94.8 % (95.0-99.0); ABG PCO2 39 mmHg (32-45)
[2020-12-26] MEDS: FENTANYL 2500MCG+NS 250ML 250 ML IV SCH (18:02)
[2020-12-26 18:17] LABS: CREATININE 0.9 mg/dL (0.5-1.5); POTASSIUM 3.3 mmol/L (3.5-5.1)
[2020-12-26] MEDS ORDERED: VANCOMYCIN 1G/250ML KIT 250 ML IV ONE (20:54)
[2020-12-26] MEDS: CEFTRIAXONE 2GM VIAL IVP SCH (21:43)
[2020-12-26 22:09] LABS: CREATININE 0.9 mg/dL (0.5-1.5); POTASSIUM 3.5 mmol/L (3.5-5.1)
[2020-12-27] VITALS (65 sets, daily range): BP systolic 68–157; BP diastolic 43–80
[2020-12-27] MEDS: DEXTROSE 5%-WATER 1,000 ML IV SCH ×5 (00:28→23:17)
[2020-12-27] MEDS: DEXTROSE 50%-WATER 50 ML DISP.SYRIN IV SCH (00:28)
[2020-12-27] MEDS: POTASSIUM CHLORIDE 20MEQ/100ML 100 ML IV PRN ×2 (00:39→06:18)
[2020-12-27] MEDS: NOREPINEPHRINE BITARTRATE 16 MG in DEXTROSE 5%-WATER 250 ML IV PRN ×2 (00:41→08:14)
[2020-12-27 02:23] LABS: BASOPHILS % (AUTO) 0.1 % (0.0-5.0); EOSINOPHILS % (AUTO) 0.1 % (0.0-8.0); HEMATOCRIT 32.3 % (36-48); LYMPHOCYTES % (AUTO) 5.2 % (21.0-51.0); MEAN CORPUSCULAR HGB CONC 31.6 g/dL (32.0-36.0); MONOCYTES % (AUTO) 2.7 % (3.0-13.0); NEUTROPHILS % (AUTO) 89.1 % (40.0-77.0); NUCLEATED RED BLOOD CELLS 0.6 % (0.0-0.19); PLATELET COUNT (AUTO) 129 K/uL (130-400); RED CELL DISTRIBUTION WIDTH 17.5 % (11.0-15.5); WHITE BLOOD COUNT (AUTO) 11.8 K/uL (4.8-10.8)
[2020-12-27 02:36] LABS: CREATININE 0.8 mg/dL (0.5-1.5); POTASSIUM 3.2 mmol/L (3.5-5.1)
[2020-12-27 06:16] LABS: POTASSIUM 3.7 mmol/L (3.5-5.1)
[2020-12-27] MEDS: MIDAZOLAM 100MG-0.9% NS 100ML 100ML BAG IV SCH ×2 (06:17→13:43)
[2020-12-27] MEDS: FENTANYL 2500MCG+NS 250ML 250 ML IV SCH ×2 (06:17→22:54)
[2020-12-27] MEDS: DEXTROSE 5% IV SCH (09:00)
[2020-12-27] MEDS: VANCOMYCIN IV SCH (09:00)
[2020-12-27] MEDS: WATER IV SCH (09:00)
[2020-12-27] MEDS: METRONIDAZOLE 500MG/100ML BAG 100 ML IV SCH ×2 (09:50→20:12)
[2020-12-27] MEDS: FLUCONAZOLE 400 MG/NS 200 ML 200 ML IV SCH (09:50)
[2020-12-27] MEDS: PANTOPRAZOLE 40 MG/VIAL IVP SCH (09:50)
[2020-12-27] MEDS: ENOXAPARIN SODIUM 30 MG/0.3 ML SQ SCH (10:01)
[2020-12-27 10:04] LABS: CREATININE 1.2 mg/dL (0.5-1.5); POTASSIUM 4.6 mmol/L (3.5-5.1)
[2020-12-27 14:40] LABS: CREATININE 1.1 mg/dL (0.5-1.5); POTASSIUM 3.7 mmol/L (3.5-5.1)
[2020-12-27] MEDS: ALBUMIN (HUMAN) 25% 100 ML IV SCH ×2 (15:12→18:29)
[2020-12-27] MEDS ORDERED: ALBUMIN (HUMAN) 25% 100 ML IV PRN (15:30)
[2020-12-27 17:52] LABS: CREATININE 1.2 mg/dL (0.5-1.5); POTASSIUM 3.5 mmol/L (3.5-5.1)
[2020-12-27] MEDS: CEFTRIAXONE 2GM VIAL IVP SCH (20:12)
[2020-12-27] MEDS: VANCOMYCIN 750MG VIAL IVPB SCH (20:29)
[2020-12-27] MEDS: 0.9% NACL 250ML 250 ML IV SCH (20:29)
[2020-12-27 22:10] LABS: CREATININE 1.2 mg/dL (0.5-1.5); POTASSIUM 3.8 mmol/L (3.5-5.1)
[2020-12-28] VITALS (35 sets, daily range): BP systolic 112–144; BP diastolic 57–76
[2020-12-28] MEDS: MIDAZOLAM 100MG-0.9% NS 100ML 100ML BAG IV SCH ×2 (01:23→18:53)
[2020-12-28] MEDS: NOREPINEPHRINE BITARTRATE 16 MG in DEXTROSE 5%-WATER 250 ML IV PRN ×2 (03:01→15:29)
[2020-12-28 03:33] LABS: HEMATOCRIT 27.1 % (36-48); MEAN CORPUSCULAR HEMOGLOBIN 29.3 pg (27.0-33.0); MEAN CORPUSCULAR HGB CONC 32.1 g/dL (32.0-36.0); MEAN CORPUSCULAR VOLUME 91.2 fL (79-99); NUCLEATED RED BLOOD CELLS 0.3 % (0.0-0.19); PLATELET COUNT (AUTO) 126 K/uL (130-400); RED BLOOD CELL COUNT(AUTO) 2.97 MIL/uL (4.00-5.50); RED CELL DISTRIBUTION WIDTH 16.8 % (11.0-15.5); WHITE BLOOD COUNT (AUTO) 14.4 K/uL (4.8-10.8)
[2020-12-28 03:48] LABS: ALBUMIN 1.9 g/dL (3.5-5.0); BILIRUBIN,TOTAL 1.4 mg/dL (0.2-1.0); CREATININE 1.3 mg/dL (0.5-1.5); MAGNESIUM 1.8 mg/dL (1.80-2.40); PHOSPHORUS 1.7 mg/dL (2.5-4.9); POTASSIUM 3.5 mmol/L (3.5-5.1); TOTAL PROTEIN, SERUM 3.9 g/dL (6.0-8.3)
[2020-12-28 04:03] LABS: BAND NEUTROPHILS % (MANUAL) 1 % (0-2); LYMPHOCYTES % (MANUAL) 5 % (22-44); SEGMENTED NEUTROPHILS % 94 % (40-70)
[2020-12-28 04:06] LABS: MAN.DIFF COMMENT-IMPRESSION MANUAL DIFFERENTIAL
[2020-12-28 04:07] LABS: PLATELET MORPHOLOGY COMMENT ADEQUATE
[2020-12-28] MEDS: POTASSIUM CHLORIDE 20MEQ/100ML 100 ML IV PRN ×3 (04:07→21:22)
[2020-12-28] MEDS: MAGNESIUM 2GM PREMIX 50ML 50 ML IV PRN (04:08)
[2020-12-28] MEDS: DEXTROSE 5%-WATER 1,000 ML IV SCH ×3 (05:53→15:15)
[2020-12-28] MEDS: DEXTROSE 50%-WATER 50 ML DISP.SYRIN IV SCH (05:53)
[2020-12-28] MEDS ORDERED: POTASSIUM PHOS 15 mMOL+NS250ML 250 ML IV PRN (08:00)
[2020-12-28 08:55] LABS: CREATININE 1.2 mg/dL (0.5-1.5); POTASSIUM 3.9 mmol/L (3.5-5.1)
[2020-12-28] MEDS: METRONIDAZOLE 500MG/100ML BAG 100 ML IV SCH ×2 (09:45→21:10)
[2020-12-28] MEDS: PANTOPRAZOLE 40 MG/VIAL IVP SCH (09:45)
[2020-12-28] MEDS: FLUCONAZOLE 400 MG/NS 200 ML 200 ML IV SCH (09:45)
[2020-12-28] MEDS: ENOXAPARIN SODIUM 30 MG/0.3 ML SQ SCH (09:46)
[2020-12-28] MEDS: VANCOMYCIN 750MG VIAL IVPB SCH ×2 (09:48→21:10)
[2020-12-28] MEDS: 0.9% NACL 250ML 250 ML IV SCH ×2 (09:49→21:10)
[2020-12-28 12:22] LABS: CREATININE 1.2 mg/dL (0.5-1.5); POTASSIUM 3.7 mmol/L (3.5-5.1)
[2020-12-28] MEDS ORDERED: PHARMACY COMMUNICATION MISC SCH (14:00)
[2020-12-28] MEDS: DESMOPRESSIN ACETATE 4 MCG/ML 1ML AMP SQ SCH ×2 (14:52→21:38)
[2020-12-28] MEDS: FENTANYL 2500MCG+NS 250ML 250 ML IV SCH (15:22)
[2020-12-28 15:55] LABS: CREATININE 1.1 mg/dL (0.5-1.5); POTASSIUM 4.1 mmol/L (3.5-5.1)
[2020-12-28] MEDS ORDERED: M.V.I. IV [ADULT] 10 ML in CLINIMIX-E4.25%AA/D5+LYT2000ML 2,000 ML IV SCH (18:30)
[2020-12-28] MEDS ORDERED: 0.9% NACL 500ML IV.SOLN 500 ML IV ONE (18:54)
[2020-12-28 20:45] LABS: CREATININE 1.1 mg/dL (0.5-1.5); POTASSIUM 3.6 mmol/L (3.5-5.1)
[2020-12-28] MEDS: CEFTRIAXONE 2GM VIAL IVP SCH (21:10)
[2020-12-29] VITALS (21 sets, daily range): BP systolic 97–138; BP diastolic 56–72
[2020-12-29] MEDS: DEXTROSE 5%-WATER 1,000 ML IV SCH (02:57)
[2020-12-29 04:27] LABS: HEMATOCRIT 26.7 % (36-48); MEAN CORPUSCULAR HEMOGLOBIN 29.2 pg (27.0-33.0); MEAN CORPUSCULAR HGB CONC 31.5 g/dL (32.0-36.0); MEAN CORPUSCULAR VOLUME 92.7 fL (79-99); NUCLEATED RED BLOOD CELLS 0.2 % (0.0-0.19); RED BLOOD CELL COUNT(AUTO) 2.88 MIL/uL (4.00-5.50); RED CELL DISTRIBUTION WIDTH 16.8 % (11.0-15.5); WHITE BLOOD COUNT (AUTO) 12.6 K/uL (4.8-10.8)
[2020-12-29 04:41] LABS: ALBUMIN 1.4 g/dL (3.5-5.0); BILIRUBIN,TOTAL 1.4 mg/dL (0.2-1.0); POTASSIUM 3.7 mmol/L (3.5-5.1); TOTAL PROTEIN, SERUM 3.9 g/dL (6.0-8.3)
[2020-12-29] MEDS: DEXTROSE 50%-WATER 50 ML DISP.SYRIN IV SCH (05:02)
[2020-12-29] MEDS: FENTANYL 2500MCG+NS 250ML 250 ML IV SCH ×2 (06:15→22:51)
[2020-12-29] MEDS ORDERED: ROCURONIUM 10MG/1ML SYR 10 MG/ML ML ONE ×3 (07:11→10:17)
[2020-12-29] MEDS ORDERED: PROPOFOL 10 MG/ML 20ML VIAL IV ONE (07:11)
[2020-12-29] MEDS ORDERED: MIDAZOLAM HCL 1 MG/ML 5ML VIAL ONE (07:11)
[2020-12-29] MEDS ORDERED: FENTANYL CITRATE PF 50 MCG/1 ML 2ML VIAL ONE (07:11)
[2020-12-29 08:07] LABS: INR 1.38 (0.85-1.15); PROTHROMBIN TIME 14.6 SEC (9.6-11.6)
[2020-12-29 08:08] LABS: PARTIAL THROMBOPLASTIN TIME 60.8 SEC (26.3-35.5)
[2020-12-29] MEDS ORDERED: VANCOMYCIN 1G VIAL ONE ×2 (08:16→09:06)
[2020-12-29] MEDS ORDERED: PHENYLEPHRINE HCL 10 MG/ML 1ML VIAL IV ONE (08:33)
[2020-12-29] MEDS: VANCOMYCIN 750MG VIAL IVPB SCH ×2 (09:00→20:59)
[2020-12-29] MEDS: FLUCONAZOLE 400 MG/NS 200 ML 200 ML IV SCH (09:00)
[2020-12-29] MEDS: ENOXAPARIN SODIUM 30 MG/0.3 ML SQ SCH (09:00)
[2020-12-29] MEDS: 0.9% NACL 250ML 250 ML IV SCH ×2 (09:00→21:00)
[2020-12-29] MEDS: METRONIDAZOLE 500MG/100ML BAG 100 ML IV SCH (09:00)
[2020-12-29] MEDS: MIDAZOLAM 100MG-0.9% NS 100ML 100ML BAG IV SCH (13:06)
[2020-12-29] MEDS: DESMOPRESSIN ACETATE 4 MCG/ML 1ML AMP SQ SCH ×2 (14:32→21:00)
[2020-12-29] MEDS: PANTOPRAZOLE 40 MG/VIAL IVP SCH (14:35)
[2020-12-29] MEDS: FUROSEMIDE 20MG VIAL IV SCH (14:35)
[2020-12-29 14:41] LABS: CREATININE 0.8 mg/dL (0.5-1.5); POTASSIUM 3.9 mmol/L (3.5-5.1)
[2020-12-29] MEDS ORDERED: M.V.I. IV [ADULT] 10 ML in CLINIMIX-E 5%AA /D15%W 2000ML 2,000 ML IV ONE (18:00)
[2020-12-29] MEDS: CEFTRIAXONE 2GM VIAL IVP SCH (21:00)
[2020-12-29 21:14] LABS: CREATININE 0.9 mg/dL (0.5-1.5)
[2020-12-30] VITALS (22 sets, daily range): BP systolic 100–140; BP diastolic 58–83
[2020-12-30] MEDS: FUROSEMIDE 20MG VIAL IV SCH ×2 (02:17→13:35)
[2020-12-30] MEDS: MIDAZOLAM 100MG-0.9% NS 100ML 100ML BAG IV SCH (02:22)
[2020-12-30 03:39] LABS: BASOPHILS % (AUTO) 0.3 % (0.0-5.0); EOSINOPHILS % (AUTO) 1.3 % (0.0-8.0); HEMATOCRIT 30.1 % (36-48); LYMPHOCYTES % (AUTO) 6.7 % (21.0-51.0); MEAN CORPUSCULAR HEMOGLOBIN 29.5 pg (27.0-33.0); MEAN CORPUSCULAR HGB CONC 33.9 g/dL (32.0-36.0); MONOCYTES % (AUTO) 2.1 % (3.0-13.0); NEUTROPHILS % (AUTO) 88.9 % (40.0-77.0); PLATELET COUNT (AUTO) 120 K/uL (130-400); RED BLOOD CELL COUNT(AUTO) 3.46 MIL/uL (4.00-5.50); RED CELL DISTRIBUTION WIDTH 16.1 % (11.0-15.5); WHITE BLOOD COUNT (AUTO) 11.7 K/uL (4.8-10.8)
[2020-12-30 03:54] LABS: POTASSIUM 3.4 mmol/L (3.5-5.1)
[2020-12-30] MEDS: POTASSIUM CHLORIDE 20MEQ/100ML 100 ML IV PRN ×2 (04:38→13:35)
[2020-12-30 05:00] LABS: ABG BASE EXCESS -2.7 mmol/L (-2.0-3.0); ABG HCO3 20.8 mmol/L (21.0-28.0); ABG OXYGEN SATURATION 97.9 % (95.0-99.0); ABG PCO2 33 mmHg (32-45)
[2020-12-30] MEDS: DEXTROSE 50%-WATER 50 ML DISP.SYRIN IV SCH (05:40)
[2020-12-30] MEDS: NOREPINEPHRINE BITARTRATE 16 MG in DEXTROSE 5%-WATER 250 ML IV PRN ×2 (09:02→16:52)
[2020-12-30 09:20] LABS: CHOLESTEROL 78 mg/dL (<200); LDL DIRECT 55 mg/dL (0-99); TRIGLYCERIDES 111 mg/dL (30-200)
[2020-12-30] MEDS: VANCOMYCIN 750MG VIAL IVPB SCH ×2 (09:21→20:53)
[2020-12-30] MEDS: 0.9% NACL 250ML 250 ML IV SCH ×2 (09:23→20:53)
[2020-12-30] MEDS: PANTOPRAZOLE 40 MG/VIAL IVP SCH (09:23)
[2020-12-30] MEDS: FLUCONAZOLE 400 MG/NS 200 ML 200 ML IV SCH (09:24)
[2020-12-30] MEDS: DESMOPRESSIN ACETATE 4 MCG/ML 1ML AMP SQ SCH (09:24)
[2020-12-30] MEDS: ENOXAPARIN SODIUM 30 MG/0.3 ML SQ SCH (09:28)
[2020-12-30 09:42] LABS: HDL CHOLESTEROL < 10 mg/dL (35-85)
[2020-12-30] MEDS ORDERED: M.V.I. IV [ADULT] 10 ML in CLINIMIX-E 5%AA /D15%W 2000ML 2,000 ML IV ONE (17:00)
[2020-12-30] MEDS: CEFTRIAXONE 2GM VIAL IVP SCH (20:29)
[2020-12-31] VITALS (41 sets, daily range): BP systolic 110–142; BP diastolic 53–80
[2020-12-31] MEDS: FUROSEMIDE 20MG VIAL IV SCH ×2 (04:23→15:16)
[2020-12-31] MEDS: DEXTROSE 50%-WATER 50 ML DISP.SYRIN IV SCH (04:24)
[2020-12-31 06:01] LABS: HEMATOCRIT 26.8 % (36-48); MEAN CORPUSCULAR HEMOGLOBIN 29.1 pg (27.0-33.0); MEAN CORPUSCULAR HGB CONC 33.6 g/dL (32.0-36.0); MEAN CORPUSCULAR VOLUME 86.7 fL (79-99); PLATELET COUNT (AUTO) 162 K/uL (130-400); RED BLOOD CELL COUNT(AUTO) 3.09 MIL/uL (4.00-5.50); RED CELL DISTRIBUTION WIDTH 15.5 % (11.0-15.5); WHITE BLOOD COUNT (AUTO) 10.6 K/uL (4.8-10.8)
[2020-12-31 06:45] LABS: CREATININE 0.8 mg/dL (0.5-1.5); MAGNESIUM 1.6 mg/dL (1.80-2.40); PHOSPHORUS 2.5 mg/dL (2.5-4.9); POTASSIUM 3.2 mmol/L (3.5-5.1)
[2020-12-31] MEDS: POTASSIUM CHLORIDE 20MEQ/100ML 100 ML IV PRN ×2 (08:28→22:48)
[2020-12-31] MEDS: MAGNESIUM 2GM PREMIX 50ML 50 ML IV PRN (08:28)
[2020-12-31] MEDS: FLUCONAZOLE 400 MG/NS 200 ML 200 ML IV SCH (10:05)
[2020-12-31] MEDS: PANTOPRAZOLE 40 MG/VIAL IVP SCH (10:05)
[2020-12-31] MEDS: ENOXAPARIN SODIUM 30 MG/0.3 ML SQ SCH (10:05)
[2020-12-31 10:50] LABS: BAND NEUTROPHILS % (MANUAL) 1 % (0-2); LYMPHOCYTES % (MANUAL) 4 % (22-44); SEGMENTED NEUTROPHILS % 95 % (40-70)
[2020-12-31 10:51] LABS: MAN.DIFF COMMENT-IMPRESSION MANUAL DIFFERENTIAL; PLATELET MORPHOLOGY COMMENT ADEQUATE
[2020-12-31] MEDS: 0.9% NACL 250ML 250 ML IV SCH ×2 (12:27→20:39)
[2020-12-31] MEDS ORDERED: VANCOMYCIN 750MG VIAL IVPB SCH (12:30)
[2020-12-31] MEDS ORDERED: CLINIMIX-E 5%AA /D15%W 2000ML 2,000 ML IV ONE (16:30)
[2020-12-31] MEDS: PHARMACY COMMUNICATION MISC SCH (16:30)
[2020-12-31] MEDS: VANCOMYCIN 750MG VIAL IVPB SCH (20:39)
[2020-12-31] MEDS: CEFTRIAXONE 2GM VIAL IVP SCH (20:39)
[2020-12-31 22:39] LABS: MAGNESIUM 1.9 mg/dL (1.80-2.40)
[2021-01-01] VITALS (89 sets, daily range): BP systolic 87–133; BP diastolic 41–68
[2021-01-01] MEDS: PHARMACY COMMUNICATION MISC SCH ×3 (00:30→16:11)
[2021-01-01] MEDS: POTASSIUM CHLORIDE 20MEQ/100ML 100 ML IV PRN ×3 (00:36→04:06)
[2021-01-01] MEDS: FUROSEMIDE 20MG VIAL IV SCH (02:34)
[2021-01-01 04:05] LABS: HEMATOCRIT 26.2 % (36-48); MEAN CORPUSCULAR HEMOGLOBIN 29.1 pg (27.0-33.0); MEAN CORPUSCULAR HGB CONC 34.7 g/dL (32.0-36.0); MEAN CORPUSCULAR VOLUME 83.7 fL (79-99); NUCLEATED RED BLOOD CELLS 0.2 % (0.0-0.19); RED BLOOD CELL COUNT(AUTO) 3.13 MIL/uL (4.00-5.50); RED CELL DISTRIBUTION WIDTH 15.1 % (11.0-15.5); WHITE BLOOD COUNT (AUTO) 10.3 K/uL (4.8-10.8)
[2021-01-01 04:20] LABS: ALBUMIN 1.1 g/dL (3.5-5.0); BILIRUBIN,TOTAL 1.5 mg/dL (0.2-1.0); CREATININE 0.8 mg/dL (0.5-1.5); MAGNESIUM 1.9 mg/dL (1.80-2.40); PHOSPHORUS 3.1 mg/dL (2.5-4.9); POTASSIUM 3.8 mmol/L (3.5-5.1); TOTAL PROTEIN, SERUM 4.7 g/dL (6.0-8.3)
[2021-01-01] MEDS: DEXTROSE 50%-WATER 50 ML DISP.SYRIN IV SCH (06:30)
[2021-01-01 07:09] LABS: ABG BASE EXCESS 4.3 mmol/L (-2.0-3.0); ABG OXYGEN SATURATION 96.7 % (95.0-99.0); ABG PCO2 34 mmHg (32-45)
[2021-01-01] MEDS: FLUCONAZOLE 400 MG/NS 200 ML 200 ML IV SCH (09:54)
[2021-01-01] MEDS: PANTOPRAZOLE 40 MG/VIAL IVP SCH (09:54)
[2021-01-01] MEDS: FAT EMULSIONS 20% 250ML 250 ML IV SCH (09:55)
[2021-01-01] MEDS: 0.9% NACL 250ML 250 ML IV SCH ×2 (09:55→22:35)
[2021-01-01] MEDS: VANCOMYCIN 750MG VIAL IVPB SCH ×2 (09:55→22:35)
[2021-01-01] MEDS: ENOXAPARIN SODIUM 30 MG/0.3 ML SQ SCH (09:56)
[2021-01-01] MEDS ORDERED: MORPHINE 4 MG SYG IV PRN (15:30)
[2021-01-01] MEDS ORDERED: MORPHINE 2 MG SYG IVP PRN (15:30)
[2021-01-01] MEDS ORDERED: DESMOPRESSIN IJ ONE (16:00)
[2021-01-01] MEDS ORDERED: [UNRECOGNIZED DRUG - OTHER] IJ ONE (16:00)
[2021-01-01] MEDS ORDERED: CLINIMIX-E 5%AA /D15%W 2000ML 2,000 ML IV ONE (16:00)
[2021-01-01 16:41] LABS: THYROID STIMULATING HORMONE 1.27 uIU/mL (0.36-3.74)
[2021-01-01] MEDS: CEFTRIAXONE 2GM VIAL IVP SCH (22:34)
[2021-01-01] MEDS: HYDROCORTISONE SOD SUCCINATE 100 MG/2 ML VIAL IV SCH (22:34)
[2021-01-02] VITALS (32 sets, daily range): BP systolic 106–144; BP diastolic 53–78
[2021-01-02 04:58] LABS: HEMATOCRIT 24.7 % (36-48); MEAN CORPUSCULAR HEMOGLOBIN 28.7 pg (27.0-33.0); MEAN CORPUSCULAR HGB CONC 33.2 g/dL (32.0-36.0); MEAN CORPUSCULAR VOLUME 86.4 fL (79-99); NUCLEATED RED BLOOD CELLS 0.3 % (0.0-0.19); RED BLOOD CELL COUNT(AUTO) 2.86 MIL/uL (4.00-5.50); WHITE BLOOD COUNT (AUTO) 11.3 K/uL (4.8-10.8)
[2021-01-02 05:12] LABS: CREATININE 0.7 mg/dL (0.5-1.5); MAGNESIUM 1.8 mg/dL (1.80-2.40); PHOSPHORUS 3.1 mg/dL (2.5-4.9); POTASSIUM 4.1 mmol/L (3.5-5.1)
[2021-01-02] MEDS: MAGNESIUM 2GM PREMIX 50ML 50 ML IV PRN (05:23)
[2021-01-02] MEDS: DEXTROSE 50%-WATER 50 ML DISP.SYRIN IV SCH ×2 (06:30→22:49)
[2021-01-02] MEDS: FLUCONAZOLE 400 MG/NS 200 ML 200 ML IV SCH (08:26)
[2021-01-02] MEDS: PANTOPRAZOLE 40 MG/VIAL IVP SCH (08:26)
[2021-01-02] MEDS: HYDROCORTISONE SOD SUCCINATE 100 MG/2 ML VIAL IV SCH ×2 (08:26→14:59)
[2021-01-02] MEDS: ENOXAPARIN SODIUM 30 MG/0.3 ML SQ SCH (08:27)
[2021-01-02 09:48] LABS: ABG BASE EXCESS 1.6 mmol/L (-2.0-3.0); ABG HCO3 24.6 mmol/L (21.0-28.0); ABG OXYGEN SATURATION 97.9 % (95.0-99.0); ABG PCO2 32 mmHg (32-45)
[2021-01-02] MEDS: VANCOMYCIN 750MG VIAL IVPB SCH (09:52)
[2021-01-02] MEDS: 0.9% NACL 250ML 250 ML IV SCH (09:52)
[2021-01-02 11:12] LABS: CREATININE 0.6 mg/dL (0.5-1.5); POTASSIUM 3.9 mmol/L (3.5-5.1)
[2021-01-02] MEDS: SODIUM CHLORIDE 1,000 MG TAB PO SCH ×2 (11:35→17:16)
[2021-01-02] MEDS ORDERED: GADOTERATE MEGLUMINE 10 MMOL/20 ML VIAL IV ONE (12:21)
[2021-01-02] MEDS ORDERED: INSULIN REGULAR, HUMAN 3ML 100 UNIT in 0.9%NACL 100ML 99 ML IV PRN ×2 (15:30)
[2021-01-02] MEDS ORDERED: CLINIMIX-E 5%AA /D15%W 2000ML 2,000 ML IV NR (16:01)
[2021-01-02] MEDS: SODIUM CHLORIDE 0.9% IV SCH ×2 (17:15→21:21)
[2021-01-02] MEDS: [UNRECOGNIZED DRUG - OTHER] IV SCH ×2 (17:15→21:21)
[2021-01-02] MEDS: CLINIMIX-E4.25%AA/D5+LYT2000ML 2,000 ML IV NR (17:43)
[2021-01-02] MEDS ORDERED: VANCOMYCIN 500MG+NS 100ML IVPB IV SCH (21:00)
[2021-01-02] MEDS ORDERED: 0.9%NACL 100ML 100 ML IV SCH (21:00)
[2021-01-02] MEDS: CEFTRIAXONE 2GM VIAL IVP SCH (21:20)
[2021-01-03] VITALS (27 sets, daily range): BP systolic 128–158; BP diastolic 59–86
[2021-01-03] MEDS: SODIUM CHLORIDE 0.9% IV SCH ×4 (03:57→21:19)
[2021-01-03] MEDS: [UNRECOGNIZED DRUG - OTHER] IV SCH ×4 (03:57→21:19)
[2021-01-03 04:40] LABS: ABG BASE EXCESS 2.6 mmol/L (-2.0-3.0); ABG HCO3 24.3 mmol/L (21.0-28.0); ABG OXYGEN SATURATION 97.6 % (95.0-99.0); ABG PCO2 30 mmHg (32-45)
[2021-01-03 04:48] LABS: HEMATOCRIT 24.1 % (36-48); MEAN CORPUSCULAR HEMOGLOBIN 28.9 pg (27.0-33.0); MEAN CORPUSCULAR VOLUME 84.9 fL (79-99); NUCLEATED RED BLOOD CELLS 0.3 % (0.0-0.19); RED BLOOD CELL COUNT(AUTO) 2.84 MIL/uL (4.00-5.50); RED CELL DISTRIBUTION WIDTH 14.8 % (11.0-15.5); WHITE BLOOD COUNT (AUTO) 12.5 K/uL (4.8-10.8)
[2021-01-03 05:12] LABS: ALBUMIN 1.3 g/dL (3.5-5.0); BILIRUBIN,TOTAL 0.9 mg/dL (0.2-1.0); CREATININE 0.7 mg/dL (0.5-1.5); POTASSIUM 3.9 mmol/L (3.5-5.1); TOTAL PROTEIN, SERUM 5.6 g/dL (6.0-8.3)
[2021-01-03] MEDS: ENOXAPARIN SODIUM 30 MG/0.3 ML SQ SCH (08:34)
[2021-01-03] MEDS: FLUCONAZOLE 400 MG/NS 200 ML 200 ML IV SCH (08:34)
[2021-01-03] MEDS: SODIUM CHLORIDE 1,000 MG TAB PO SCH ×3 (08:35→16:17)
[2021-01-03] MEDS: PANTOPRAZOLE 40 MG/VIAL IVP SCH (08:35)
[2021-01-03] MEDS ORDERED: HYDROCORTISONE SOD SUCCINATE 100 MG/2 ML VIAL ONE (09:31)
[2021-01-03] MEDS ORDERED: PHARMACY COMMUNICATION MISC SCH (11:30)
[2021-01-03] MEDS: CLINIMIX-E4.25%AA/D5+LYT2000ML 2,000 ML IV NR (13:05)
[2021-01-03] MEDS: FAT EMULSIONS 20% 250ML 250 ML IV SCH (14:52)
[2021-01-03] MEDS: CEFTRIAXONE 2GM VIAL IVP SCH (21:17)
[2021-01-03] MEDS ORDERED: 0.9% NACL 500ML IV.SOLN 500 ML IV ONE (21:36)
[2021-01-04] VITALS (25 sets, daily range): BP systolic 104–139; BP diastolic 63–83
[2021-01-04] MEDS: DEXTROSE 50%-WATER 50 ML DISP.SYRIN IV SCH (02:42)
[2021-01-04] MEDS: [UNRECOGNIZED DRUG - OTHER] IV SCH ×2 (03:30→10:01)
[2021-01-04] MEDS: SODIUM CHLORIDE 0.9% IV SCH ×2 (03:30→10:01)
[2021-01-04 03:52] LABS: BASOPHILS % (AUTO) 0.3 % (0.0-5.0); HEMATOCRIT 23.3 % (36-48); LYMPHOCYTES % (AUTO) 5.2 % (21.0-51.0); MEAN CORPUSCULAR HEMOGLOBIN 29.6 pg (27.0-33.0); MEAN CORPUSCULAR HGB CONC 34.8 g/dL (32.0-36.0); MONOCYTES % (AUTO) 4.6 % (3.0-13.0); NEUTROPHILS % (AUTO) 83.9 % (40.0-77.0); NUCLEATED RED BLOOD CELLS 0.5 % (0.0-0.19); RED BLOOD CELL COUNT(AUTO) 2.74 MIL/uL (4.00-5.50); RED CELL DISTRIBUTION WIDTH 14.6 % (11.0-15.5); WHITE BLOOD COUNT (AUTO) 16.3 K/uL (4.8-10.8)
[2021-01-04 03:56] LABS: PLATELET COUNT (AUTO) 762 K/uL (130-400)
[2021-01-04 04:15] LABS: CREATININE 0.5 mg/dL (0.5-1.5); MAGNESIUM 1.7 mg/dL (1.80-2.40); PHOSPHORUS 2.8 mg/dL (2.5-4.9); POTASSIUM 3.7 mmol/L (3.5-5.1); THYROID STIMULATING HORMONE 0.58 uIU/mL (0.36-3.74); URIC ACID 1.8 mg/dL (2.6-7.2)
[2021-01-04] MEDS: SODIUM CHLORIDE 1,000 MG TAB PO SCH ×3 (08:00→16:20)
[2021-01-04] MEDS: FLUCONAZOLE 400 MG/NS 200 ML 200 ML IV SCH (08:23)
[2021-01-04] MEDS: PANTOPRAZOLE 40 MG/VIAL IVP SCH (08:23)
[2021-01-04] MEDS: ENOXAPARIN SODIUM 30 MG/0.3 ML SQ SCH (08:26)
[2021-01-04] MEDS: MAGNESIUM 2GM PREMIX 50ML 50 ML IV PRN (08:49)
[2021-01-04] MEDS ORDERED: CLINIMIX-E4.25%AA/D5+LYT2000ML 2,000 ML IV SCH (15:30)
[2021-01-04] MEDS: CEFTRIAXONE 2GM VIAL IVP SCH (20:19)
[2021-01-05] VITALS (23 sets, daily range): BP systolic 119–142; BP diastolic 63–76
[2021-01-05] MEDS: DEXTROSE 50%-WATER 50 ML DISP.SYRIN IV SCH (06:30)
[2021-01-05] MEDS: PANTOPRAZOLE 40 MG/VIAL IVP SCH (08:25)
[2021-01-05] MEDS: ONDANSETRON 4MG INJ IV PRN (08:25)
[2021-01-05] MEDS: ENOXAPARIN SODIUM 30 MG/0.3 ML SQ SCH (08:26)
[2021-01-05] MEDS: SODIUM CHLORIDE 1,000 MG TAB PO SCH ×3 (08:26→17:11)
[2021-01-05] MEDS: FLUCONAZOLE 400 MG/NS 200 ML 200 ML IV SCH (08:27)
[2021-01-05 09:23] LABS: ABG BASE EXCESS 3.8 mmol/L (-2.0-3.0); ABG HCO3 26.6 mmol/L (21.0-28.0); ABG OXYGEN SATURATION 94.7 % (95.0-99.0); ABG PCO2 33 mmHg (32-45)
[2021-01-05] MEDS ORDERED: CLINIMIX-E 5%AA /D15%W 2000ML 2,000 ML IV SCH (13:00)
[2021-01-05] MEDS ORDERED: CLINIMIX E 5% IV SCH (13:30)
[2021-01-05] MEDS ORDERED: [UNRECOGNIZED DRUG - OTHER] IV SCH (13:30)
[2021-01-05 15:07] LABS: ABG BASE EXCESS 0.6 mmol/L (-2.0-3.0); ABG OXYGEN SATURATION 95.1 % (95.0-99.0); ABG PCO2 30 mmHg (32-45)
[2021-01-05] MEDS: MAGNESIUM 2GM PREMIX 50ML 50 ML IV PRN (15:30)
[2021-01-05 16:07] LABS: POTASSIUM 2.8 mmol/L (3.5-5.1)
[2021-01-05] MEDS: POTASSIUM CHLORIDE 20MEQ/100ML 100 ML IV PRN ×2 (16:16→17:11)
[2021-01-05] MEDS: IPRATROPIUM/ALBUTEROL SULFATE 3 ML SOLUTION IH SCH ×2 (18:57→23:47)
[2021-01-05] MEDS: CEFTRIAXONE 2GM VIAL IVP SCH (22:00)
[2021-01-06] VITALS (29 sets, daily range): BP systolic 111–137; BP diastolic 64–75
[2021-01-06] MEDS: POTASSIUM CHLORIDE 20MEQ/100ML 100 ML IV PRN (02:34)
[2021-01-06 05:16] LABS: BASOPHILS % (AUTO) 0.5 % (0.0-5.0); EOSINOPHILS % (AUTO) 0.5 % (0.0-8.0); HEMATOCRIT 30.6 % (36-48); LYMPHOCYTES % (AUTO) 6.2 % (21.0-51.0); MEAN CORPUSCULAR HEMOGLOBIN 29.1 pg (27.0-33.0); MEAN CORPUSCULAR VOLUME 88.2 fL (79-99); MONOCYTES % (AUTO) 4.2 % (3.0-13.0); NEUTROPHILS % (AUTO) 83.3 % (40.0-77.0); NUCLEATED RED BLOOD CELLS 8.7 % (0.0-0.19); RED BLOOD CELL COUNT(AUTO) 3.47 MIL/uL (4.00-5.50); RED CELL DISTRIBUTION WIDTH 16.3 % (11.0-15.5); WHITE BLOOD COUNT (AUTO) 16.9 K/uL (4.8-10.8)
[2021-01-06 05:22] LABS: PLATELET COUNT (AUTO) 834 K/uL (130-400)
[2021-01-06 05:26] LABS: ALBUMIN 1.6 g/dL (3.5-5.0); BILIRUBIN,TOTAL 0.7 mg/dL (0.2-1.0); CREATININE 0.6 mg/dL (0.5-1.5); MAGNESIUM 2.4 mg/dL (1.80-2.40); TOTAL PROTEIN, SERUM 5.3 g/dL (6.0-8.3)
[2021-01-06 05:44] LABS: LYMPHOCYTES % (MANUAL) 4 % (22-44); MAN.DIFF COMMENT-IMPRESSION MANUAL DIFFERENTIAL; MONOCYTES % (MANUAL) 2 % (2-9); SEGMENTED NEUTROPHILS % 94 % (40-70)
[2021-01-06] MEDS: DEXTROSE 50%-WATER 50 ML DISP.SYRIN IV SCH ×2 (06:30→17:33)
[2021-01-06] MEDS: IPRATROPIUM/ALBUTEROL SULFATE 3 ML SOLUTION IH SCH ×4 (06:41→23:24)
[2021-01-06] MEDS: SODIUM CHLORIDE 1,000 MG TAB PO SCH ×3 (07:37→17:00)
[2021-01-06] MEDS: PANTOPRAZOLE 40 MG/VIAL IVP SCH (08:45)
[2021-01-06] MEDS: FLUCONAZOLE 400 MG/NS 200 ML 200 ML IV SCH (08:45)
[2021-01-06] MEDS: ENOXAPARIN SODIUM 30 MG/0.3 ML SQ SCH (08:46)
[2021-01-06] MEDS ORDERED: HYDROMORPHONE 1 MG INJ IVP PRN (09:00)
[2021-01-06] MEDS ORDERED: FAT EMULSIONS 20% 250ML 250 ML IV SCH (10:00)
[2021-01-06] MEDS ORDERED: CLINIMIX-E4.25%AA/D5+LYT2000ML 2,000 ML IV SCH (11:30)
[2021-01-06 11:57] LABS: CREATININE 0.6 mg/dL (0.5-1.5)
[2021-01-06] MEDS ORDERED: [UNRECOGNIZED DRUG - OTHER] IV SCH (12:30)
[2021-01-06] MEDS ORDERED: DESMOPRESSIN IV SCH (12:30)
[2021-01-06 13:47] LABS: INR 1.03 (0.85-1.15); PROTHROMBIN TIME 11.2 SEC (9.6-11.6)
[2021-01-06] MEDS: DEXTROSE 5%-WATER 1,000 ML IV SCH ×2 (15:28→22:06)
[2021-01-06] MEDS ORDERED: DESMOPRESSIN IJ SCH (21:00)
[2021-01-06] MEDS ORDERED: [UNRECOGNIZED DRUG - OTHER] IJ SCH (21:00)
[2021-01-06 22:09] LABS: CREATININE 0.6 mg/dL (0.5-1.5); POTASSIUM 3.6 mmol/L (3.5-5.1)
[2021-01-07] VITALS (24 sets, daily range): BP systolic 111–152; BP diastolic 44–96
[2021-01-07 04:39] LABS: HEMATOCRIT 27.9 % (36-48); MEAN CORPUSCULAR HGB CONC 32.3 g/dL (32.0-36.0); NUCLEATED RED BLOOD CELLS 7.3 % (0.0-0.19); RED BLOOD CELL COUNT(AUTO) 3.1 MIL/uL (4.00-5.50); RED CELL DISTRIBUTION WIDTH 17.3 % (11.0-15.5); WHITE BLOOD COUNT (AUTO) 12.4 K/uL (4.8-10.8)
[2021-01-07 04:58] LABS: ALBUMIN 1.5 g/dL (3.5-5.0); BILIRUBIN,TOTAL 0.7 mg/dL (0.2-1.0); CREATININE 0.7 mg/dL (0.5-1.5); MAGNESIUM 2.1 mg/dL (1.80-2.40); PHOSPHORUS 3.1 mg/dL (2.5-4.9); POTASSIUM 3.4 mmol/L (3.5-5.1); TOTAL PROTEIN, SERUM 5.1 g/dL (6.0-8.3)
[2021-01-07] MEDS: DEXTROSE 5%-WATER 1,000 ML IV SCH (05:27)
[2021-01-07] MEDS: IPRATROPIUM/ALBUTEROL SULFATE 3 ML SOLUTION IH SCH ×3 (06:36→18:38)
[2021-01-07] MEDS: SODIUM CHLORIDE 1,000 MG TAB PO SCH ×2 (07:40→10:07)
[2021-01-07] MEDS ORDERED: CEFAZOLIN SODIUM 1 GM VIAL ONE (07:42)
[2021-01-07] MEDS: FLUCONAZOLE 400 MG/NS 200 ML 200 ML IV SCH (07:50)
[2021-01-07] MEDS: POTASSIUM CHLORIDE 20MEQ/100ML 100 ML IV PRN ×2 (07:50→16:15)
[2021-01-07] MEDS: PANTOPRAZOLE 40 MG/VIAL IVP SCH (07:50)
[2021-01-07] MEDS: ENOXAPARIN SODIUM 30 MG/0.3 ML SQ SCH (07:51)
[2021-01-07] MEDS: DESMOPRESSIN ACETATE IV SCH ×2 (08:01→21:01)
[2021-01-07] MEDS: SODIUM CHLORIDE 0.9% IV SCH ×2 (08:01→21:01)
[2021-01-07 09:36] LABS: CREATININE 0.6 mg/dL (0.5-1.5)
[2021-01-07] MEDS: CEFTRIAXONE 2GM VIAL IVP SCH (12:14)
[2021-01-07] MEDS ORDERED: COMPOUND IV REFRIGERATED 1 EACH IVSOLN MISC PRN (13:30)
[2021-01-07 15:17] LABS: CREATININE 0.6 mg/dL (0.5-1.5); POTASSIUM 3.6 mmol/L (3.5-5.1)
[2021-01-07] MEDS ORDERED: [UNRECOGNIZED DRUG - REMARK] MISC SCH (17:00)
[2021-01-07] MEDS: ASPIRIN 325MG TAB PO SCH (18:18)
[2021-01-07 21:13] LABS: CREATININE 0.6 mg/dL (0.5-1.5); POTASSIUM 4.2 mmol/L (3.5-5.1)
[2021-01-08] VITALS (50 sets, daily range): BP systolic 65–145; BP diastolic 56–82
[2021-01-08] MEDS: IPRATROPIUM/ALBUTEROL SULFATE 3 ML SOLUTION IH SCH ×4 (00:26→18:39)
[2021-01-08 03:47] LABS: HEMATOCRIT 27.4 % (36-48); MEAN CORPUSCULAR HEMOGLOBIN 29.3 pg (27.0-33.0); MEAN CORPUSCULAR HGB CONC 31.8 g/dL (32.0-36.0); MEAN CORPUSCULAR VOLUME 92.3 fL (79-99); RED BLOOD CELL COUNT(AUTO) 2.97 MIL/uL (4.00-5.50); RED CELL DISTRIBUTION WIDTH 17.6 % (11.0-15.5); WHITE BLOOD COUNT (AUTO) 10.5 K/uL (4.8-10.8)
[2021-01-08 04:09] LABS: CREATININE 0.7 mg/dL (0.5-1.5); MAGNESIUM 1.9 mg/dL (1.80-2.40); POTASSIUM 3.7 mmol/L (3.5-5.1)
[2021-01-08] MEDS: DEXTROSE 50%-WATER 50 ML DISP.SYRIN IV SCH (05:29)
[2021-01-08] MEDS: POTASSIUM CHLORIDE 20MEQ/100ML 100 ML IV PRN (05:48)
[2021-01-08] MEDS: MAGNESIUM 2GM PREMIX 50ML 50 ML IV PRN (05:48)
[2021-01-08] MEDS: ASPIRIN 325MG TAB PO SCH (10:27)
[2021-01-08] MEDS: FLUCONAZOLE 400 MG/NS 200 ML 200 ML IV SCH (10:27)
[2021-01-08] MEDS: CEFTRIAXONE 2GM VIAL IVP SCH (10:30)
[2021-01-08] MEDS: ENOXAPARIN SODIUM 30 MG/0.3 ML SQ SCH (10:36)
[2021-01-08] MEDS: PANTOPRAZOLE 40 MG/VIAL IVP SCH (10:41)
[2021-01-08] MEDS: SODIUM CHLORIDE 0.9% IV SCH ×2 (10:42→21:08)
[2021-01-08] MEDS: DESMOPRESSIN ACETATE IV SCH ×2 (10:42→21:08)
[2021-01-09] VITALS (24 sets, daily range): BP systolic 94–141; BP diastolic 49–83
[2021-01-09] MEDS: IPRATROPIUM/ALBUTEROL SULFATE 3 ML SOLUTION IH SCH ×5 (00:23→23:25)
[2021-01-09 03:49] LABS: HEMATOCRIT 27.3 % (36-48); MEAN CORPUSCULAR HGB CONC 32.2 g/dL (32.0-36.0); MEAN CORPUSCULAR VOLUME 90.1 fL (79-99); NUCLEATED RED BLOOD CELLS 1.6 % (0.0-0.19); RED BLOOD CELL COUNT(AUTO) 3.03 MIL/uL (4.00-5.50); WHITE BLOOD COUNT (AUTO) 10.4 K/uL (4.8-10.8)
[2021-01-09 04:13] LABS: CREATININE 0.7 mg/dL (0.5-1.5); MAGNESIUM 1.9 mg/dL (1.80-2.40); PHOSPHORUS 3.3 mg/dL (2.5-4.9); POTASSIUM 3.6 mmol/L (3.5-5.1)
[2021-01-09] MEDS: POTASSIUM CHLORIDE 20MEQ/100ML 100 ML IV PRN (04:22)
[2021-01-09] MEDS: MAGNESIUM 2GM PREMIX 50ML 50 ML IV PRN (04:23)
[2021-01-09] MEDS: DEXTROSE 50%-WATER 50 ML DISP.SYRIN IV SCH (06:29)
[2021-01-09 09:07] LABS: INR 1.01 (0.85-1.15)
[2021-01-09] MEDS: ENOXAPARIN SODIUM 30 MG/0.3 ML SQ SCH (09:34)
[2021-01-09] MEDS: PANTOPRAZOLE 40 MG/VIAL IVP SCH (09:34)
[2021-01-09] MEDS: FLUCONAZOLE 400 MG/NS 200 ML 200 ML IV SCH (09:35)
[2021-01-09] MEDS: ASPIRIN 325MG TAB PO SCH (09:35)
[2021-01-09] MEDS: DESMOPRESSIN ACETATE IV SCH (10:08)
[2021-01-09] MEDS: SODIUM CHLORIDE 0.9% IV SCH (10:08)
[2021-01-09] MEDS: CEFTRIAXONE 2GM VIAL IVP SCH (10:08)
[2021-01-09] MEDS ORDERED: NYSTATIN 100000 UNIT/ML 5ML UDCUP PO SCH (16:00)
[2021-01-09] MEDS: DESMOPRESSIN ACETATE 4 MCG/ML 1ML AMP IVP SCH (20:31)
[2021-01-10] VITALS (25 sets, daily range): BP systolic 92–174; BP diastolic 48–119
[2021-01-10 05:59] LABS: HEMATOCRIT 28.2 % (36-48); MEAN CORPUSCULAR HEMOGLOBIN 29.2 pg (27.0-33.0); MEAN CORPUSCULAR HGB CONC 32.3 g/dL (32.0-36.0); MEAN CORPUSCULAR VOLUME 90.4 fL (79-99); NUCLEATED RED BLOOD CELLS 0.3 % (0.0-0.19); RED BLOOD CELL COUNT(AUTO) 3.12 MIL/uL (4.00-5.50); RED CELL DISTRIBUTION WIDTH 16.8 % (11.0-15.5); WHITE BLOOD COUNT (AUTO) 10.1 K/uL (4.8-10.8)
[2021-01-10 06:18] LABS: ALBUMIN 1.8 g/dL (3.5-5.0); CREATININE 0.7 mg/dL (0.5-1.5); MAGNESIUM 1.9 mg/dL (1.80-2.40); PHOSPHORUS 3.1 mg/dL (2.5-4.9); POTASSIUM 3.5 mmol/L (3.5-5.1)
[2021-01-10] MEDS: DEXTROSE 50%-WATER 50 ML DISP.SYRIN IV SCH (06:30)
[2021-01-10] MEDS: IPRATROPIUM/ALBUTEROL SULFATE 3 ML SOLUTION IH SCH ×3 (06:39→18:54)
[2021-01-10] MEDS: FLUCONAZOLE 400 MG/NS 200 ML 200 ML IV SCH (09:01)
[2021-01-10] MEDS: PANTOPRAZOLE 40 MG/VIAL IVP SCH (09:02)
[2021-01-10] MEDS: ENOXAPARIN SODIUM 30 MG/0.3 ML SQ SCH (09:02)
[2021-01-10] MEDS: MAGNESIUM 2GM PREMIX 50ML 50 ML IV PRN (09:02)
[2021-01-10] MEDS: CEFTRIAXONE 2GM VIAL IVP SCH (09:03)
[2021-01-10] MEDS: ASPIRIN 325MG TAB PO SCH (09:03)
[2021-01-10] MEDS: DESMOPRESSIN ACETATE 4 MCG/ML 1ML AMP IVP SCH ×2 (09:03→21:02)
[2021-01-10] MEDS ORDERED: LEVOFLOXACIN 500 MG TABLET PO SCH (11:00)
[2021-01-11] VITALS (10 sets, daily range): BP systolic 98–127; BP diastolic 40–84
[2021-01-11] MEDS: DEXTROSE 50%-WATER 50 ML DISP.SYRIN IV SCH (05:50)
[2021-01-11 06:19] LABS: HEMATOCRIT 27.6 % (36-48); MEAN CORPUSCULAR HEMOGLOBIN 28.9 pg (27.0-33.0); MEAN CORPUSCULAR HGB CONC 32.2 g/dL (32.0-36.0); MEAN CORPUSCULAR VOLUME 89.6 fL (79-99); RED BLOOD CELL COUNT(AUTO) 3.08 MIL/uL (4.00-5.50); RED CELL DISTRIBUTION WIDTH 16.5 % (11.0-15.5); WHITE BLOOD COUNT (AUTO) 11.1 K/uL (4.8-10.8)
[2021-01-11 06:33] LABS: CREATININE 0.7 mg/dL (0.5-1.5); POTASSIUM 3.2 mmol/L (3.5-5.1)
[2021-01-11] MEDS: IPRATROPIUM/ALBUTEROL SULFATE 3 ML SOLUTION IH SCH ×2 (06:37)
[2021-01-11] MEDS: POTASSIUM CHLORIDE 20MEQ/100ML 100 ML IV PRN ×2 (07:42→08:57)
[2021-01-11] MEDS: PANTOPRAZOLE 40 MG/VIAL IVP SCH (07:42)
[2021-01-11] MEDS: FLUCONAZOLE 400 MG/NS 200 ML 200 ML IV SCH (07:42)
[2021-01-11] MEDS: ASPIRIN 325MG TAB PO SCH (07:43)
[2021-01-11] MEDS: DESMOPRESSIN ACETATE 4 MCG/ML 1ML AMP IVP SCH (07:43)
[2021-01-11] MEDS: ENOXAPARIN SODIUM 30 MG/0.3 ML SQ SCH (07:44)
[2021-01-11] MEDS: CEFTRIAXONE 2GM VIAL IVP SCH (08:56)
[2021-01-11] MEDS ORDERED: LEVOFLOXACIN 500 MG TABLET PO SCH (09:00)
== END 2021-01-11 09:58 | DRG 329 ==
LOC: EDH 11:49 → EDHIP 12:00 → OBSVTOIN 12:00 → 3AH 12-16 18:41 → 2CH 12-22 14:17
PROVIDERS: ADMIT Internal Medicine; ATTEND Internal Medicine
PROC: 30233N1 Transfusion of Nonautologous Red Blood Cells into Peripheral Vein, Percutaneous Approach (ICD-10-PCS; 2020-12-22)
PROC: 5A1955Z Respiratory Ventilation, Greater than 96 Consecutive Hours (ICD-10-PCS; 2020-12-22)
PROC: 0BH17EZ Insertion of Endotracheal Airway into Trachea, Via Natural or Artificial Opening (ICD-10-PCS; 2020-12-22)
PROC: 0DBN0ZZ Excision of Sigmoid Colon, Open Approach (ICD-10-PCS; principal; 2020-12-22 09:30)
PROC: 0DBM0ZZ Excision of Descending Colon, Open Approach (ICD-10-PCS; 2020-12-22 09:30)
PROC: 0DB80ZZ Excision of Small Intestine, Open Approach (ICD-10-PCS; 2020-12-22 09:30)
PROC: 0D1L0Z4 Bypass Transverse Colon to Cutaneous, Open Approach (ICD-10-PCS; 2020-12-22 09:30)
PROC: 0DJD8ZZ Inspection of Lower Intestinal Tract, Via Natural or Artificial Opening Endoscopic (ICD-10-PCS; 2020-12-22 09:30)
PROC: 0DTJ0ZZ Resection of Appendix, Open Approach (ICD-10-PCS; 2020-12-24)
PROC: 5A09357 Assistance with Respiratory Ventilation, Less than 24 Consecutive Hours, Continuous Positive Airway Pressure (ICD-10-PCS; 2021-01-02)
PROC: 02HV33Z Insertion of Infusion Device into Superior Vena Cava, Percutaneous Approach (ICD-10-PCS; 2021-01-09)
DX: K56.699 Other intestinal obstruction unspecified as to partial versus complete obstruction (principal); E43 Unspecified severe protein-calorie malnutrition; R57.1 Hypovolemic shock; A41.9 Sepsis, unspecified organism; J18.9 Pneumonia, unspecified organism; J96.91 Respiratory failure, unspecified with hypoxia; R65.21 Severe sepsis with septic shock; K63.1 Perforation of intestine (nontraumatic); E87.1 Hypo-osmolality and hyponatremia; E27.40 Unspecified adrenocortical insufficiency; G93.40 Encephalopathy, unspecified; K57.20 Diverticulitis of large intestine with perforation and abscess without bleeding; K59.39 Other megacolon; N17.9 Acute kidney failure, unspecified; R18.8 Other ascites; C52 Malignant neoplasm of vagina; E88.81 Metabolic syndrome and other insulin resistance; G56.01 Carpal tunnel syndrome, right upper limb; K21.9 Gastro-esophageal reflux disease without esophagitis; K80.20 Calculus of gallbladder without cholecystitis without obstruction; E78.2 Mixed hyperlipidemia; J30.9 Allergic rhinitis, unspecified; C53.9 Malignant neoplasm of cervix uteri, unspecified; E87.6 Hypokalemia; E11.9 Type 2 diabetes mellitus without complications; D64.9 Anemia, unspecified; E86.9 Volume depletion, unspecified; E83.42 Hypomagnesemia; D86.0 Sarcoidosis of lung; E07.81 Sick-euthyroid syndrome; E66.9 Obesity, unspecified; E87.70 Fluid overload, unspecified; I10 Essential (primary) hypertension; R35.89 Other polyuria; Z20.822 Contact with and (suspected) exposure to COVID-19; K64.0 First degree hemorrhoids; D50.9 Iron deficiency anemia, unspecified; E86.0 Dehydration; Z68.26 Body mass index [BMI] 26.0-26.9, adult; Z88.0 Allergy status to penicillin; Z88.5 Allergy status to narcotic agent; Z88.8 Allergy status to other drugs, medicaments and biological substances; Z74.01 Bed confinement status; Z85.038 Personal history of other malignant neoplasm of large intestine; Z85.118 Personal history of other malignant neoplasm of bronchus and lung; Z85.41 Personal history of malignant neoplasm of cervix uteri; Z85.42 Personal history of malignant neoplasm of other parts of uterus; Z85.44 Personal history of malignant neoplasm of other female genital organs; Z87.01 Personal history of pneumonia (recurrent); Z87.19 Personal history of other diseases of the digestive system; Z90.710 Acquired absence of both cervix and uterus; Z90.81 Acquired absence of spleen; Z93.1 Gastrostomy status; Z93.2 Ileostomy status; Z90.79 Acquired absence of other genital organ(s); Z90.722 Acquired absence of ovaries, bilateral; Z80.0 Family history of malignant neoplasm of digestive organs; Z80.1 Family history of malignant neoplasm of trachea, bronchus and lung; Z82.3 Family history of stroke; Z82.49 Family history of ischemic heart disease and other diseases of the circulatory system; Z83.3 Family history of diabetes mellitus
CPT/HCPCS: 36415; 36430; 36600; 45378; 70450; 70553; 71045; 74018; 74177; 80048; 80051; 80053; 80061; 80076; 80202; 81001; 82378; 82435; 82436; 82533; 82570; 82803; 82947; 82948; 83605; 83735; 83880; 83930; 83935; 84100; 84132; 84133; 84145; 84295; 84300; 84439; 84443; 84478; 84481; 84484; 84550; 84588; 85018; 85025; 85027; 85378; 85610; 85730; 86850; 86900; 86901; 86923; 87040; 87071; 87077; 87088; 87186; 87205; 87635; 92526; 92610; 93971; 94002; 94003; 94640; 94667; 94668; A4344; A4606; C1751; C1894; C9113; G0378; J0171; J0330; J0690; J0696; J1450; J1580; J1650; J1720; J1940; J2001; J2250; J2270; J2370; J2405; J2597; J2704; J2795; J3010; J3370; J3475; J3480; J3490; J7030; J7040; J7042; J7050; J7060; J7070; J7120; P9016; P9045; P9046; P9047; Q9963; Q9967

== ENCOUNTER → 2021-09-19 | Outpatient (CLI) | payer BC ==
[~2021-09-19] MED LIST: CETI-89 PO; FLUT16H NASAL; LIDOCAINE HCL 4% LTA SOL 4 ML VIAL TP ONE; OMEP40CA21 PO; ROSU5TAB12 PO
== END | disposition home or self-care (01) ==
LOC: WHH 09:59
PROVIDERS: ATTEND Family Medicine
DX: T81.89XA Other complications of procedures, not elsewhere classified, initial encounter (principal); S31.102A Unspecified open wound of abdominal wall, epigastric region without penetration into peritoneal cavity, initial encounter; E11.9 Type 2 diabetes mellitus without complications; I95.9 Hypotension, unspecified; I10 Essential (primary) hypertension; G93.40 Encephalopathy, unspecified; K21.9 Gastro-esophageal reflux disease without esophagitis; E78.2 Mixed hyperlipidemia; E88.81 Metabolic syndrome and other insulin resistance; E07.81 Sick-euthyroid syndrome; R35.89 Other polyuria; E66.9 Obesity, unspecified; Z68.1 Body mass index [BMI] 19.9 or less, adult; Z93.3 Colostomy status; Z93.2 Ileostomy status; Z87.01 Personal history of pneumonia (recurrent); Z85.44 Personal history of malignant neoplasm of other female genital organs; Z85.41 Personal history of malignant neoplasm of cervix uteri; Z85.038 Personal history of other malignant neoplasm of large intestine; Z79.899 Other long term (current) drug therapy; X58.XXXA Exposure to other specified factors, initial encounter; Y93.89 Activity, other specified; Y99.8 Other external cause status; Y92.89 Other specified places as the place of occurrence of the external cause; Y83.8 Other surgical procedures as the cause of abnormal reaction of the patient, or of later complication, without mention of misadventure at the time of the procedure; Y92.238 Other place in hospital as the place of occurrence of the external cause
CPT/HCPCS: 99215; A4450; A6209 ×2

== ENCOUNTER → 2021-09-26 | Outpatient (CLI) | payer BC ==
[~2021-09-26] MED LIST changes: -LIDOCAINE HCL 4% LTA SOL 4 ML VIAL TP ONE
== END | disposition home or self-care (01) ==
LOC: WHH 09:10
PROVIDERS: ATTEND Family Medicine
DX: T81.89XD Other complications of procedures, not elsewhere classified, subsequent encounter (principal); S31.102D Unspecified open wound of abdominal wall, epigastric region without penetration into peritoneal cavity, subsequent encounter; E11.9 Type 2 diabetes mellitus without complications; I95.9 Hypotension, unspecified; I10 Essential (primary) hypertension; G93.40 Encephalopathy, unspecified; K21.9 Gastro-esophageal reflux disease without esophagitis; E78.2 Mixed hyperlipidemia; E88.81 Metabolic syndrome and other insulin resistance; E07.81 Sick-euthyroid syndrome; R35.89 Other polyuria; E66.9 Obesity, unspecified; Z68.1 Body mass index [BMI] 19.9 or less, adult; Z93.3 Colostomy status; Z93.2 Ileostomy status; Z87.01 Personal history of pneumonia (recurrent); Z85.44 Personal history of malignant neoplasm of other female genital organs; Z85.41 Personal history of malignant neoplasm of cervix uteri; Z85.038 Personal history of other malignant neoplasm of large intestine; Z79.899 Other long term (current) drug therapy; X58.XXXD Exposure to other specified factors, subsequent encounter; Y83.8 Other surgical procedures as the cause of abnormal reaction of the patient, or of later complication, without mention of misadventure at the time of the procedure
CPT/HCPCS: 99214; A6209

== ENCOUNTER → 2021-10-03 | Outpatient (CLI) | payer BC ==
[~2021-10-03] MED LIST changes: +LIDOCAINE HCL 4% LTA SOL 4 ML VIAL TP ONE
== END | disposition home or self-care (01) ==
LOC: WHH 08:50
PROVIDERS: ATTEND Family Medicine
DX: T81.89XD Other complications of procedures, not elsewhere classified, subsequent encounter (principal); S31.102D Unspecified open wound of abdominal wall, epigastric region without penetration into peritoneal cavity, subsequent encounter; E11.9 Type 2 diabetes mellitus without complications; I10 Essential (primary) hypertension; K21.9 Gastro-esophageal reflux disease without esophagitis; E78.5 Hyperlipidemia, unspecified; E88.81 Metabolic syndrome and other insulin resistance; E07.81 Sick-euthyroid syndrome; E66.9 Obesity, unspecified; Z68.1 Body mass index [BMI] 19.9 or less, adult; X58.XXXD Exposure to other specified factors, subsequent encounter; Y83.8 Other surgical procedures as the cause of abnormal reaction of the patient, or of later complication, without mention of misadventure at the time of the procedure
CPT/HCPCS: 99214

== ENCOUNTER → 2021-10-10 | Outpatient (CLI) | payer BC | END | disposition home or self-care (01) | LOC: WHH 09:01 | PROVIDERS: ATTEND Family Medicine | DX: T81.89XD Other complications of procedures, not elsewhere classified, subsequent encounter (principal); S31.102D Unspecified open wound of abdominal wall, epigastric region without penetration into peritoneal cavity, subsequent encounter; E11.9 Type 2 diabetes mellitus without complications; I10 Essential (primary) hypertension; E78.5 Hyperlipidemia, unspecified; E88.81 Metabolic syndrome and other insulin resistance; E07.81 Sick-euthyroid syndrome; K21.9 Gastro-esophageal reflux disease without esophagitis; Z79.899 Other long term (current) drug therapy; Z93.3 Colostomy status; Z93.2 Ileostomy status; Z85.41 Personal history of malignant neoplasm of cervix uteri; Z85.44 Personal history of malignant neoplasm of other female genital organs; X58.XXXD Exposure to other specified factors, subsequent encounter; Y83.8 Other surgical procedures as the cause of abnormal reaction of the patient, or of later complication, without mention of misadventure at the time of the procedure | CPT/HCPCS: 99214; A6209 ==

== ENCOUNTER → 2021-10-17 | Outpatient (CLI) | payer BC | END | disposition home or self-care (01) | LOC: WHH 09:02 | PROVIDERS: ATTEND Family Medicine | DX: T81.89XD Other complications of procedures, not elsewhere classified, subsequent encounter (principal); S31.102D Unspecified open wound of abdominal wall, epigastric region without penetration into peritoneal cavity, subsequent encounter; E11.9 Type 2 diabetes mellitus without complications; I10 Essential (primary) hypertension; E78.5 Hyperlipidemia, unspecified; E88.81 Metabolic syndrome and other insulin resistance; E07.81 Sick-euthyroid syndrome; K21.9 Gastro-esophageal reflux disease without esophagitis; Z79.899 Other long term (current) drug therapy; Z93.3 Colostomy status; Z93.2 Ileostomy status; Z85.41 Personal history of malignant neoplasm of cervix uteri; Z85.44 Personal history of malignant neoplasm of other female genital organs; X58.XXXD Exposure to other specified factors, subsequent encounter; Y83.8 Other surgical procedures as the cause of abnormal reaction of the patient, or of later complication, without mention of misadventure at the time of the procedure | CPT/HCPCS: 99214; A6209 ==

== ENCOUNTER → 2022-09-26 | Outpatient (CLI) | payer BC ==
[~2022-09-26] MED LIST changes: -LIDOCAINE HCL 4% LTA SOL 4 ML VIAL TP ONE
== END | disposition home or self-care (01) ==
LOC: RAH 15:02
PROVIDERS: ATTEND Internal Medicine
DX: Z12.31 Encounter for screening mammogram for malignant neoplasm of breast (principal)
CPT/HCPCS: 77067

== ENCOUNTER → 2024-05-07 | Outpatient (CLI) | payer BC ==
[~2024-05-07] MED LIST changes: -CETI-89 PO; +CHOL-34 PO; -FLUT16H NASAL; +FOLI1TAB85 PO; +FOLIC ACID PO; +HYDR-4419 PO; +IRON PO; +LOPE2TAB26 PO; +MIDO10TA3 PO; -OMEP40CA21 PO; +PANT40TA54 PO; -ROSU5TAB12 PO; +SODI100037 PO; +THIA100T78 PO; +VITAMIN B12 PO
--- NOTE | 2024-05-07 12:27 | HMCIMG ---
DEXA BONE DENSITY SURVEY REASON: UNSPECIFIED MENOPAUSAL AND PERIMENOPAUSAL DISORDER COMPARISON: None TECHNIQUE: DEXA bone densitometry was performed in the lumbar spine and left hip. FINDINGS: Mean bone mass density in the spine is 0.657 g present with square, T score -3.5, corresponding with osteoporosis. Femoral neck T score is -2.8 also consistent with osteoporosis. IMPRESSION: 1. Osteoporosis indicating a high fracture risk.
== END | disposition home or self-care (01) ==
LOC: RAH 09:12
PROVIDERS: ATTEND Internal Medicine
DX: M81.8 Other osteoporosis without current pathological fracture (principal); N95.9 Unspecified menopausal and perimenopausal disorder; Z78.0 Asymptomatic menopausal state
CPT/HCPCS: 77080

== ENCOUNTER → 2024-12-14 | Outpatient (CLI) | payer MEDICARE ==
[~2024-12-14] MED LIST changes: -THIA100T78 PO; +[UNRECOGNIZED DRUG - CODE] PO
== END | disposition home or self-care (01) ==
LOC: RAH 12:51
PROVIDERS: ATTEND Internal Medicine
DX: Z12.31 Encounter for screening mammogram for malignant neoplasm of breast (principal)
CPT/HCPCS: 77067